=== PATIENT | male | born 1960 | race Caucasian/White ===

== ENCOUNTER 2021-04-10 10:44 | Emergency (ER) | payer BC ==
[~2021-04-10] VITALS: Ht 190.5 cm; Wt 83.9 kg
[2021-04-10] MEDS ORDERED: SODIUM CHLORIDE 0.9% 1000ML 1,000 ML IV STA (10:54)
[2021-04-10 11:28] LABS: BASOPHILS # (AUTO) 0.1 (0.0-0.1); BASOPHILS % 0.9 % (0.0-1.0); EOSINOPHILS # (AUTO) 1.5 (0.0-0.4); EOSINOPHILS % 10.7 % (0.0-6.0); HEMATOCRIT 39.8 % (38.2-49.6); HEMOGLOBIN 13.2 g/dL (14.0-18.0); LYMPHOCYTES # (AUTO) 1.3 (1.0-3.2); LYMPHOCYTES % 9.2 % (18.0-39.1); MEAN CORPUSCULAR HEMOGLOBIN 30.4 pg (28-32); MEAN CORPUSCULAR HGB CONC 33.2 g/dL (31-35); MEAN CORPUSCULAR VOLUME 91.7 fL (81-99); MONOCYTES # (AUTO) 0.8 (0.2-0.8); MONOCYTES % 5.8 % (4.4-11.3); NEUTROPHILS # (AUTO) 10.5 (2.1-6.9); NEUTROPHILS % 72.8 % (38.7-80.0); PLATELET COUNT 538 x10e3/uL (140-360); RED BLOOD COUNT 4.34 x10e6/uL (4.3-5.7); RED CELL DISTRIBUTION WIDTH 14.3 % (11.7-14.4)
[2021-04-10 11:53] LABS: ALBUMIN 2.8 g/dL (3.5-5.0); ALBUMIN/GLOBULIN RATIO 0.7 (0.8-2.0); ANION GAP 15.1 mmol/L (8-16); CALCIUM 8.5 mg/dL (8.4-10.2); CREATININE, SERUM 0.83 mg/dL (0.72-1.25); POTASSIUM 4.1 mmol/L (3.5-5.1)
[2021-04-10] MEDS ORDERED: VANCOCIN HCL125 MG PO (12:41)
[2021-04-10] MEDS ORDERED: DICYCLOMINE HCL10 MG PO (12:41)
[2021-04-10 12:50] VITALS: BP 117/71
== END 2021-04-10 12:58 | disposition home or self-care (01) ==
LOC: ER 11:08
DX: K52.89 Other specified noninfective gastroenteritis and colitis (principal); R00.2 Palpitations; J18.9 Pneumonia, unspecified organism; R53.1 Weakness
CPT/HCPCS: 36415; 71045; 80053; 83690; 84484; 85025; 99284; J7030

== ENCOUNTER 2021-04-22 09:48 | Inpatient (IN) | payer BC ==
[~2021-04-22] VITALS: Ht 190.5 cm; Wt 95.9 kg
[~2021-04-22 09:48] MED LIST: DICYCLOMINE HCL10 MG PO; VANCOCIN HCL125 MG PO
[2021-04-22 10:27] LABS: BASOPHILS # (AUTO) 0.1 (0.0-0.1); BASOPHILS % 0.4 % (0.0-1.0); EOSINOPHILS # (AUTO) 0.2 (0.0-0.4); EOSINOPHILS % 0.7 % (0.0-6.0); HEMATOCRIT 42.4 % (38.2-49.6); HEMOGLOBIN 14.6 g/dL (14.0-18.0); LYMPHOCYTES # (AUTO) 1.1 (1.0-3.2); LYMPHOCYTES % 3.9 % (18.0-39.1); MEAN CORPUSCULAR HEMOGLOBIN 30.2 pg (28-32); MEAN CORPUSCULAR HGB CONC 34.4 g/dL (31-35); MEAN CORPUSCULAR VOLUME 87.6 fL (81-99); MONOCYTES # (AUTO) 1.6 (0.2-0.8); MONOCYTES % 5.5 % (4.4-11.3); NEUTROPHILS # (AUTO) 24.4 (2.1-6.9); NEUTROPHILS % 86.6 % (38.7-80.0); PLATELET COUNT 420 x10e3/uL (140-360); RED BLOOD COUNT 4.84 x10e6/uL (4.3-5.7)
[2021-04-22 10:42] LABS: INR 0.94; PROTHROMBIN TIME 13.2 seconds (11.9-14.5)
[2021-04-22 10:43] LABS: PARTIAL THROMBOPLASTIN TIME 33.9 seconds (23.8-35.5)
[2021-04-22 10:52] LABS: ALBUMIN 3.1 g/dL (3.5-5.0); ALBUMIN/GLOBULIN RATIO 0.9 (0.8-2.0); CALCIUM 8.5 mg/dL (8.4-10.2); CREATININE, SERUM 0.69 mg/dL (0.72-1.25)
[2021-04-22 10:58] LABS: CREATINE KINASE MB 64.2 ng/mL (0-5.0)
[2021-04-22] MEDS ORDERED: SODIUM CHLORIDE 0.9% 1000ML 1,000 ML IV STA (11:08)
[2021-04-22] MEDS ORDERED: SODIUM CHLORIDE 0.9% 500ML 500 ML IV ONE (11:15)
[2021-04-22] MEDS: LEVOFLOXACIN 500MG/D5W 100ML 100 ML IV SCH (11:38)
[2021-04-22] MEDS ORDERED: ALBUTEROL/IPRATROPIUM 3 ML NEB NEB ONE (12:00)
[2021-04-22] MEDS ORDERED: SODIUM CHLORIDE 0.9% 1000ML 1,000 ML IV SCH (12:00)
[2021-04-22 12:16] LABS: CLARITY,URINE CLEAR (CLEAR); COLOR,URINE YELLOW (YELLOW); KETONES,URINE 2+ (NEGATIVE); LEUKOCYTE ESTERASE ,URINE NEGATIVE (NEGATIVE); NITRITE,URINE NEGATIVE (NEGATIVE); PROTEIN,URINE DIPSTICK TRACE (NEGATIVE); URINE UROBILINOGEN 0.2 mg/dL (0.2 - 1)
[2021-04-22 12:26] LABS: BACTERIA,URINE RARE /HPF; RBC,URINE 0-5 /HPF (0-5); WBC,URINE (MAN) 0-5 /HPF (0-5)
[2021-04-22 12:27] LABS: MUCUS,URINE FEW (RARE)
[2021-04-22] MEDS ORDERED: EPINEPHRINE HCL SYRINGE ONE (13:21)
[2021-04-22] MEDS ORDERED: ETOMIDATE 2 MG/ML 10 ML INJ IV ONE (13:21)
[2021-04-22] MEDS ORDERED: SODIUM BICARBONATE 8.4% INJ 50 ML SYR ONE (13:21)
[2021-04-22] MEDS ORDERED: ATROPINE SULFATE 0.1 MG/ML 10ML SYR ONE (13:21)
[2021-04-22] MEDS ORDERED: SUCCINYLCHOLINE CHLORIDE 20 MG/ML 10ML VIAL ONE (13:21)
[2021-04-22 14:17] LABS: BAND NEUTROPHILS % (MANUAL) 25 %; EOSINOPHILS % (MANUAL) 4 % (0-7); LYMPHOCYTES % (MANUAL) 4 % (19-48); METAMYELOCYTES % (MANUAL) 6 % (0-0); MONOCYTES % (MANUAL) 8 % (3.4-9.0); NEUTROPHILS % (MANUAL) 53 % (40-74)
[2021-04-22 14:18] LABS: SMUDGE CELLS FEW
[2021-04-22 14:19] LABS: PLATELET ESTIMATE SLIGHTLY INCREASED; PLATELET MORPHOLOGY COMMENT FEW GIANT
[2021-04-22 14:45] VITALS: BP 160/93
[2021-04-22 15:44] VITALS: BP 137/94
[2021-04-22] MEDS ORDERED: PRAVASTATIN SOD40 MG PO (17:10)
[2021-04-22] MEDS ORDERED: ULTRAM 50MG50 MG PO (17:10)
[2021-04-22] MEDS ORDERED: TRAMADOL HCL 50 MG TAB PO PRN (17:30)
[2021-04-22 18:41] LABS: CALCIUM 7.9 mg/dL (8.4-10.2); CREATININE, SERUM 0.62 mg/dL (0.72-1.25)
[2021-04-22 19:12] LABS: CREATINE KINASE MB 72.6 ng/mL (0-5.0)
[2021-04-22 20:00] VITALS: BP 145/93
[2021-04-22] MEDS ORDERED: MELATONIN3 MG PO (20:01)
[2021-04-22] MEDS ORDERED: ACETAMINOPHEN 325 MG TAB PO PRN (22:30)
[2021-04-22] MEDS ORDERED: DOCUSATE SODIUM 100 MG CAP PO PRN (22:30)
[2021-04-22] MEDS ORDERED: HYDRALAZINE HCL 20 MG/ML VIAL IV PRN (22:30)
[2021-04-22] MEDS ORDERED: ONDANSETRON HCL INJ 2MG/ML 2ML 2 MG/ML VIAL IV PRN (22:30)
[2021-04-22] MEDS ORDERED: ALBUTEROL SULF 0.083% NEB SOLN 3 ML NEB NEB PRN (22:30)
[2021-04-22] MEDS: MELATONIN 3 MG TAB PO PRN (23:10)
[2021-04-23] VITALS (8 sets, daily range): BP systolic 135–190; BP diastolic 81–96
[2021-04-23 03:52] LABS: CREATINE KINASE 1420 IU/L (30-200)
[2021-04-23 06:14] LABS: BASOPHILS # (AUTO) 0.1 (0.0-0.1); BASOPHILS % 0.4 % (0.0-1.0); EOSINOPHILS # (AUTO) 0.1 (0.0-0.4); EOSINOPHILS % 0.3 % (0.0-6.0); HEMATOCRIT 41.7 % (38.2-49.6); HEMOGLOBIN 14.5 g/dL (14.0-18.0); LYMPHOCYTES # (AUTO) 0.9 (1.0-3.2); LYMPHOCYTES % 3.3 % (18.0-39.1); MEAN CORPUSCULAR HEMOGLOBIN 30.3 pg (28-32); MEAN CORPUSCULAR HGB CONC 34.8 g/dL (31-35); MEAN CORPUSCULAR VOLUME 87.1 fL (81-99); MONOCYTES # (AUTO) 1.5 (0.2-0.8); MONOCYTES % 5.7 % (4.4-11.3); NEUTROPHILS # (AUTO) 23.3 (2.1-6.9); NEUTROPHILS % 86.8 % (38.7-80.0); PLATELET COUNT 399 x10e3/uL (140-360); RED BLOOD COUNT 4.79 x10e6/uL (4.3-5.7); RED CELL DISTRIBUTION WIDTH 14.4 % (11.7-14.4)
[2021-04-23 06:32] LABS: MAGNESIUM 1.8 MG/DL (1.3-2.1); PHOSPHORUS 2.1 MG/DL (2.3-4.7)
[2021-04-23 07:01] LABS: CALCIUM 8.2 mg/dL (8.4-10.2); CREATININE, SERUM 0.61 mg/dL (0.72-1.25)
[2021-04-23 07:02] LABS: FERRITIN 643.79 ng/mL (21.81-274.66); THYROID STIMULATING HORMONE 45.921 uIU/mL (0.350-4.940)
[2021-04-23] MEDS: ALBUTEROL/IPRATROPIUM 3 ML NEB NEB PRN ×2 (07:03→10:50)
[2021-04-23 07:56] LABS: FREE THYROXINE INDEX 0.3722 (1.4-3.8)
[2021-04-23] MEDS: DEXAMETHASONE SOD PHOS INJ 4 MG/ML SDV IV SCH (08:39)
[2021-04-23] MEDS: MULTIVITAMINS/MINERALS TAB PO SCH (08:39)
[2021-04-23] MEDS: LEVOFLOXACIN 500MG/D5W 100ML 100 ML IV SCH (08:39)
[2021-04-23] MEDS ORDERED: DEXAMETHASONE PHOS 4MG/ML 5ML MULTIDOSE VIAL IV SCH (09:00)
[2021-04-23] MEDS ORDERED: ONDANSETRON HCL 4 MG ORAL DISINTEGRATING TAB PO PRN (09:30)
[2021-04-23 11:54] LABS: BAND NEUTROPHILS % (MANUAL) 11 %; LYMPHOCYTES % (MANUAL) 1 % (19-48); METAMYELOCYTES % (MANUAL) 1 % (0-0); MONOCYTES % (MANUAL) 4 % (3.4-9.0); NEUTROPHILS % (MANUAL) 83 % (40-74); PLATELET ESTIMATE ADEQUATE; PLATELET MORPHOLOGY COMMENT NORMAL; RBC MORPHOLOGY COMMENT NORMAL
[2021-04-23 13:53] LABS: CREATINE KINASE MB 65.5 ng/mL (0-5.0)
[2021-04-23 15:46] LABS: BODY FLUID APPEARANCE CLOUDY; BODY FLUID COLOR RED; BODY FLUID TYPE PLEURAL
[2021-04-23 16:03] LABS: RBC,BODY FLUID 16000 cells/uL; WBC,BODY FLUID 1180 cells/uL
[2021-04-23] MEDS ORDERED: ENOXAPARIN SOD INJ 40 MG/0.4 ML SYR SC SCH (17:00)
[2021-04-23 17:02] LABS: LYMPHOCYTES,BODY FLUID 40 %; MONO/MACROPHG,BODY FLUID 45 %; NEUTROPHILS,BODY FLUID 12 %; OTHER CELLS,BODY FLUID 3 %
[2021-04-23] MEDS: SODIUM CHLORIDE 0.9% 1000ML 1,000 ML IV SCH (18:45)
[2021-04-23] MEDS: MIRTAZAPINE 15 MG TAB PO SCH (20:50)
[2021-04-23] MEDS: MELATONIN 3 MG TAB PO PRN (21:05)
[2021-04-24] VITALS (20 sets, daily range): BP systolic 117–189; BP diastolic 81–117
[2021-04-24] MEDS: SODIUM CHLORIDE 0.9% 1000ML 1,000 ML IV SCH ×2 (05:23→14:09)
[2021-04-24 06:29] LABS: ANION GAP 14.5 mmol/L (8-16); POTASSIUM 4.5 mmol/L (3.5-5.1)
[2021-04-24 06:52] LABS: CALCIUM 8.4 mg/dL (8.4-10.2); CREATININE, SERUM 0.6 mg/dL (0.72-1.25)
[2021-04-24] MEDS: ALBUTEROL/IPRATROPIUM 3 ML NEB NEB PRN (07:20)
[2021-04-24] MEDS: DEXAMETHASONE SOD PHOS INJ 4 MG/ML SDV IV SCH ×2 (08:49→09:00)
[2021-04-24] MEDS: MULTIVITAMINS/MINERALS TAB PO SCH (08:49)
[2021-04-24] MEDS: LEVOFLOXACIN 500MG/D5W 100ML 100 ML IV SCH (09:00)
[2021-04-24] MEDS ORDERED: LIDOCAINE HCL 2% LOCAL 20 ML VIAL ONE (09:39)
[2021-04-24] MEDS ORDERED: MIDAZOLAM HCL 2 MG/2 ML VIAL ONE (09:47)
[2021-04-24] MEDS ORDERED: FENTANYL CITRATE/PF 100MCG/2 ML INJ ONE (09:48)
[2021-04-24] MEDS ORDERED: SODIUM CHLORIDE 0.9% 500ML 500 ML ONE (09:48)
[2021-04-24] MEDS ORDERED: SODIUM CHLORIDE 0.9% 50ML 50 ML ONE ×2 (09:55→16:11)
[2021-04-24] MEDS ORDERED: SODIUM CHLORIDE 0.9% 250ML 250 ML ONE (10:20)
[2021-04-24] MEDS ORDERED: Vancomycin IV 1 GM VIAL ONE (10:20)
[2021-04-24 13:26] LABS: BODY FLUID APPEARANCE CLOUDY; BODY FLUID COLOR RED
[2021-04-24 13:28] LABS: GLUCOSE,BODY FLUID 88 mg/dL; RBC,BODY FLUID 122265 cells/uL; WBC,BODY FLUID 9702 cells/uL
[2021-04-24 14:13] LABS: BODY FLUID TYPE PERICARDIAL
[2021-04-24] MEDS ORDERED: SODIUM CHLORIDE 3% 200 ML IV ONE (15:00)
[2021-04-24 15:27] LABS: EOSINOPHILS,BODY FLUID 1 %; LYMPHOCYTES,BODY FLUID 48 %; MONO/MACROPHG,BODY FLUID 35 %; NEUTROPHILS,BODY FLUID 16 %
[2021-04-24] MEDS ORDERED: IOPAMIDOL 370 MG/ML 200 ML INFUS..BTL INJ ONE (16:11)
[2021-04-24] MEDS: MIRTAZAPINE 15 MG TAB PO SCH (21:30)
[2021-04-24] MEDS: MELATONIN 3 MG TAB PO PRN (21:30)
[2021-04-25] VITALS (55 sets, daily range): BP systolic 89–167; BP diastolic 23–112
[2021-04-25] MEDS: Vancomycin IV 1 GM in SODIUM CHLORIDE 0.9% 250ML 250 ML IV SCH ×3 (00:35→23:47)
[2021-04-25] MEDS: SODIUM CHLORIDE 0.9% 1000ML 1,000 ML IV SCH ×3 (02:11→22:09)
[2021-04-25 05:01] LABS: BASOPHILS # (AUTO) 0.1 (0.0-0.1); BASOPHILS % 0.3 % (0.0-1.0); EOSINOPHILS # (AUTO) 0.1 (0.0-0.4); EOSINOPHILS % 0.3 % (0.0-6.0); HEMATOCRIT 33.2 % (38.2-49.6); HEMOGLOBIN 11.3 g/dL (14.0-18.0); LYMPHOCYTES # (AUTO) 0.5 (1.0-3.2); LYMPHOCYTES % 2.1 % (18.0-39.1); MEAN CORPUSCULAR HEMOGLOBIN 30.3 pg (28-32); MONOCYTES # (AUTO) 0.9 (0.2-0.8); MONOCYTES % 4.1 % (4.4-11.3); NEUTROPHILS # (AUTO) 20.1 (2.1-6.9); NEUTROPHILS % 90.5 % (38.7-80.0); PLATELET COUNT 294 x10e3/uL (140-360); RED BLOOD COUNT 3.73 x10e6/uL (4.3-5.7); RED CELL DISTRIBUTION WIDTH 14.7 % (11.7-14.4)
[2021-04-25 06:29] LABS: ALBUMIN 2.5 g/dL (3.5-5.0); ALBUMIN/GLOBULIN RATIO 0.8 (0.8-2.0); ANION GAP 10.3 mmol/L (8-16); CALCIUM 8.2 mg/dL (8.4-10.2); CREATININE, SERUM 0.57 mg/dL (0.72-1.25); POTASSIUM 4.3 mmol/L (3.5-5.1)
[2021-04-25] MEDS ORDERED: LORAZEPAM INJ 2 MG/ML VIAL IV PRN (07:00)
[2021-04-25] MEDS: PROPOFOL IV EMULSION 10MG/ML 100 ML IV SCH ×3 (07:10→18:25)
[2021-04-25] MEDS: LORAZEPAM INJ 2 MG/ML VIAL IV PRN ×2 (07:39→17:56)
[2021-04-25] MEDS ORDERED: SODIUM CHLORIDE 0.9% 1000ML 1,000 ML ONE (07:44)
[2021-04-25] MEDS: NOREPINEPHRINE 8 MG/D5W 250 ML 250 ML IV SCH (07:57)
[2021-04-25 08:10] LABS: BAND NEUTROPHILS % (MANUAL) 3 %; EOSINOPHILS % (MANUAL) 1 % (0-7); LYMPHOCYTES % (MANUAL) 4 % (19-48); MONOCYTES % (MANUAL) 3 % (3.4-9.0); NEUTROPHILS % (MANUAL) 89 % (40-74); PLATELET ESTIMATE ADEQUATE; PLATELET MORPHOLOGY COMMENT NORMAL; RBC MORPHOLOGY COMMENT NORMAL
[2021-04-25] MEDS ORDERED: SODIUM CHLORIDE 0.9% 1000ML 1,000 ML IV SCH (08:30)
[2021-04-25] MEDS: MULTIVITAMINS/MINERALS TAB PO SCH (09:13)
[2021-04-25 09:34] LABS: ABG PCO2 64 mmHg (35-45); ABG PH 7.23 (7.35-7.45)
[2021-04-25 09:35] LABS: ABG PO2 62 mmHg (80-105)
[2021-04-25 09:36] LABS: ABG HCO3 27 mmol/L (22-26); ABG TCO2 29
[2021-04-25] MEDS: LEVOFLOXACIN 500MG/D5W 100ML 100 ML IV SCH (10:09)
[2021-04-25] MEDS: MIRTAZAPINE 15 MG TAB PO SCH (20:05)
[2021-04-26] VITALS (61 sets, daily range): BP systolic 97–159; BP diastolic 74–104
[2021-04-26] MEDS: PROPOFOL IV EMULSION 10MG/ML 100 ML IV SCH ×4 (01:19→22:42)
[2021-04-26 05:08] LABS: BASOPHILS # (AUTO) 0.1 (0.0-0.1); BASOPHILS % 0.4 % (0.0-1.0); EOSINOPHILS # (AUTO) 1.9 (0.0-0.4); EOSINOPHILS % 10.6 % (0.0-6.0); HEMATOCRIT 38.2 % (38.2-49.6); HEMOGLOBIN 12.7 g/dL (14.0-18.0); LYMPHOCYTES # (AUTO) 1.1 (1.0-3.2); LYMPHOCYTES % 5.8 % (18.0-39.1); MEAN CORPUSCULAR HEMOGLOBIN 29.8 pg (28-32); MEAN CORPUSCULAR HGB CONC 33.2 g/dL (31-35); MEAN CORPUSCULAR VOLUME 89.7 fL (81-99); MONOCYTES # (AUTO) 0.5 (0.2-0.8); MONOCYTES % 2.9 % (4.4-11.3); NEUTROPHILS # (AUTO) 14.1 (2.1-6.9); NEUTROPHILS % 78.3 % (38.7-80.0); PLATELET COUNT 321 x10e3/uL (140-360); RED BLOOD COUNT 4.26 x10e6/uL (4.3-5.7); RED CELL DISTRIBUTION WIDTH 15.2 % (11.7-14.4)
[2021-04-26] MEDS: NOREPINEPHRINE 8 MG/D5W 250 ML 250 ML IV SCH (05:20)
[2021-04-26 05:33] LABS: ALBUMIN 1.9 g/dL (3.5-5.0); ALBUMIN/GLOBULIN RATIO 0.7 (0.8-2.0); CALCIUM 7.9 mg/dL (8.4-10.2); CREATININE, SERUM 0.59 mg/dL (0.72-1.25)
[2021-04-26] MEDS: SODIUM CHLORIDE 1 GM TAB PO SCH (08:02)
[2021-04-26] MEDS: MULTIVITAMINS/MINERALS TAB PO SCH (08:02)
[2021-04-26] MEDS: LEVOFLOXACIN 500MG/D5W 100ML 100 ML IV SCH (09:06)
[2021-04-26] MEDS: SODIUM CHLORIDE 0.9% 1000ML 1,000 ML IV SCH (09:06)
[2021-04-26 10:40] LABS: ABG PCO2 47 mmHg (35-45); ABG PO2 67 mmHg (80-105)
[2021-04-26 10:41] LABS: ABG HCO3 29 mmol/L (22-26); ABG TCO2 31
[2021-04-26] MEDS: Vancomycin IV 1 GM in SODIUM CHLORIDE 0.9% 250ML 250 ML IV SCH ×2 (13:14→23:59)
[2021-04-26] MEDS: LORAZEPAM INJ 2 MG/ML VIAL IV PRN (15:45)
[2021-04-26] MEDS: MIRTAZAPINE 15 MG TAB PO SCH (20:11)
[2021-04-27] VITALS (26 sets, daily range): BP systolic 91–125; BP diastolic 63–98
[2021-04-27] MEDS: PROPOFOL IV EMULSION 10MG/ML 100 ML IV SCH ×5 (04:20→23:18)
[2021-04-27 05:02] LABS: BASOPHILS # (AUTO) 0.1 (0.0-0.1); BASOPHILS % 0.5 % (0.0-1.0); EOSINOPHILS # (AUTO) 1.8 (0.0-0.4); EOSINOPHILS % 12.2 % (0.0-6.0); HEMATOCRIT 35.6 % (38.2-49.6); HEMOGLOBIN 11.7 g/dL (14.0-18.0); LYMPHOCYTES # (AUTO) 1.1 (1.0-3.2); LYMPHOCYTES % 7.5 % (18.0-39.1); MEAN CORPUSCULAR HEMOGLOBIN 30.3 pg (28-32); MEAN CORPUSCULAR HGB CONC 32.9 g/dL (31-35); MEAN CORPUSCULAR VOLUME 92.2 fL (81-99); MONOCYTES # (AUTO) 0.4 (0.2-0.8); MONOCYTES % 2.6 % (4.4-11.3); NEUTROPHILS # (AUTO) 11.4 (2.1-6.9); NEUTROPHILS % 75.9 % (38.7-80.0); PLATELET COUNT 296 x10e3/uL (140-360); RED BLOOD COUNT 3.86 x10e6/uL (4.3-5.7); RED CELL DISTRIBUTION WIDTH 15.7 % (11.7-14.4)
[2021-04-27 05:39] LABS: ALANINE AMINOTRANSFERASE 27 IU/L (0-55); ALBUMIN 1.7 g/dL (3.5-5.0); ALBUMIN/GLOBULIN RATIO 0.6 (0.8-2.0); ALKALINE PHOSPHATASE 60 IU/L (40-150); ANION GAP 8.7 mmol/L (8-16); BUN/CREATININE RATIO 9 (6-25); CALCIUM 8.2 mg/dL (8.4-10.2); CARBON DIOXIDE 31 mmol/L (22-29); CHLORIDE 99 mmol/L (98-107); CREATININE, SERUM 0.56 mg/dL (0.72-1.25); EST GLOMERULAR FILTRATION RATE 148 ML/MIN (60-); GLUCOSE 120 mg/dL (74-118); POTASSIUM 3.7 mmol/L (3.5-5.1); SODIUM 135 mmol/L (136-145)
[2021-04-27 06:28] LABS: BLOOD UREA NITROGEN < 5 mg/dL (7-26)
[2021-04-27] MEDS: LEVOFLOXACIN 500MG/D5W 100ML 100 ML IV SCH (09:43)
[2021-04-27] MEDS: MULTIVITAMINS/MINERALS TAB PO SCH (09:43)
[2021-04-27] MEDS: SODIUM CHLORIDE 1 GM TAB PO SCH (09:43)
[2021-04-27] MEDS: Vancomycin IV 1 GM in SODIUM CHLORIDE 0.9% 250ML 250 ML IV SCH (12:05)
[2021-04-27] MEDS: NOREPINEPHRINE 8 MG/D5W 250 ML 250 ML IV SCH ×2 (12:58→20:00)
[2021-04-27 15:41] LABS: ABG HCO3 33 mmol/L (22-26); ABG PCO2 45 mmHg (35-45); ABG PH 7.48 (7.35-7.45); ABG PO2 86 mmHg (80-105); ABG TCO2 34
[2021-04-27] MEDS: MIRTAZAPINE 15 MG TAB PO SCH (21:07)
[2021-04-28] VITALS (40 sets, daily range): BP systolic 101–140; BP diastolic 75–98
[2021-04-28] MEDS: Vancomycin IV 1 GM in SODIUM CHLORIDE 0.9% 250ML 250 ML IV SCH ×2 (00:29→11:27)
[2021-04-28 04:27] LABS: BASOPHILS # (AUTO) 0.1 (0.0-0.1); BASOPHILS % 0.7 % (0.0-1.0); EOSINOPHILS # (AUTO) 1.4 (0.0-0.4); EOSINOPHILS % 11.9 % (0.0-6.0); HEMATOCRIT 34.6 % (38.2-49.6); HEMOGLOBIN 11.2 g/dL (14.0-18.0); LYMPHOCYTES % 8.3 % (18.0-39.1); MEAN CORPUSCULAR HEMOGLOBIN 29.9 pg (28-32); MEAN CORPUSCULAR HGB CONC 32.4 g/dL (31-35); MEAN CORPUSCULAR VOLUME 92.5 fL (81-99); MONOCYTES # (AUTO) 0.4 (0.2-0.8); MONOCYTES % 3.2 % (4.4-11.3); NEUTROPHILS # (AUTO) 8.9 (2.1-6.9); NEUTROPHILS % 74.6 % (38.7-80.0); PLATELET COUNT 281 x10e3/uL (140-360); RED BLOOD COUNT 3.74 x10e6/uL (4.3-5.7); RED CELL DISTRIBUTION WIDTH 15.9 % (11.7-14.4)
[2021-04-28 04:54] LABS: ALBUMIN 1.5 g/dL (3.5-5.0); ALBUMIN/GLOBULIN RATIO 0.5 (0.8-2.0); ANION GAP 10.4 mmol/L (8-16); CREATININE, SERUM 0.57 mg/dL (0.72-1.25); POTASSIUM 3.4 mmol/L (3.5-5.1)
[2021-04-28 07:22] LABS: ABG HCO3 35 mmol/L (22-26); ABG PCO2 50 mmHg (35-45); ABG PH 7.45 (7.35-7.45); ABG PO2 97 mmHg (80-105); ABG TCO2 37
[2021-04-28] MEDS: MULTIVITAMINS/MINERALS TAB PO SCH (08:06)
[2021-04-28] MEDS: SODIUM CHLORIDE 1 GM TAB PO SCH (08:06)
[2021-04-28] MEDS: LEVOFLOXACIN 500MG/D5W 100ML 100 ML IV SCH (08:22)
[2021-04-28] MEDS: PROPOFOL IV EMULSION 10MG/ML 100 ML IV SCH ×4 (08:43→22:00)
[2021-04-28] MEDS: SENNA-S TABLET PO SCH (09:47)
[2021-04-28] MEDS: MIRTAZAPINE 15 MG TAB PO SCH (21:55)
[2021-04-29] VITALS (46 sets, daily range): BP systolic 89–128; BP diastolic 70–89
[2021-04-29] MEDS: Vancomycin IV 1 GM in SODIUM CHLORIDE 0.9% 250ML 250 ML IV SCH ×2 (00:30→11:08)
[2021-04-29] MEDS: PROPOFOL IV EMULSION 10MG/ML 100 ML IV SCH ×3 (03:00→20:33)
[2021-04-29 06:43] LABS: BASOPHILS # (AUTO) 0.1 (0.0-0.1); BASOPHILS % 1.1 % (0.0-1.0); EOSINOPHILS # (AUTO) 1.1 (0.0-0.4); EOSINOPHILS % 10.9 % (0.0-6.0); HEMATOCRIT 35.5 % (38.2-49.6); HEMOGLOBIN 11.8 g/dL (14.0-18.0); LYMPHOCYTES # (AUTO) 0.6 (1.0-3.2); LYMPHOCYTES % 6.1 % (18.0-39.1); MEAN CORPUSCULAR HEMOGLOBIN 30.3 pg (28-32); MEAN CORPUSCULAR HGB CONC 33.2 g/dL (31-35); MEAN CORPUSCULAR VOLUME 91.3 fL (81-99); MONOCYTES # (AUTO) 0.5 (0.2-0.8); MONOCYTES % 4.6 % (4.4-11.3); NEUTROPHILS # (AUTO) 7.5 (2.1-6.9); PLATELET COUNT 264 x10e3/uL (140-360); RED BLOOD COUNT 3.89 x10e6/uL (4.3-5.7); RED CELL DISTRIBUTION WIDTH 16.3 % (11.7-14.4)
[2021-04-29] MEDS: NOREPINEPHRINE 8 MG/D5W 250 ML 250 ML IV SCH (07:00)
[2021-04-29 07:15] LABS: ALBUMIN 1.5 g/dL (3.5-5.0); ALBUMIN/GLOBULIN RATIO 0.4 (0.8-2.0); ANION GAP 10.6 mmol/L (8-16); CALCIUM 8.2 mg/dL (8.4-10.2); CREATININE, SERUM 0.5 mg/dL (0.72-1.25); POTASSIUM 3.6 mmol/L (3.5-5.1)
[2021-04-29] MEDS: SENNA-S TABLET PO SCH (08:09)
[2021-04-29] MEDS: MULTIVITAMINS/MINERALS TAB PO SCH (08:09)
[2021-04-29] MEDS: SODIUM CHLORIDE 1 GM TAB PO SCH (08:09)
[2021-04-29 08:19] LABS: ABG HCO3 35 mmol/L (22-26); ABG PCO2 42 mmHg (35-45); ABG PH 7.53 (7.35-7.45); ABG PO2 51 mmHg (80-105); ABG TCO2 37
[2021-04-29] MEDS: LEVOFLOXACIN 500MG/D5W 100ML 100 ML IV SCH (09:28)
[2021-04-29] MEDS: LORAZEPAM INJ 2 MG/ML VIAL IV PRN (11:15)
[2021-04-29] MEDS: MIRTAZAPINE 15 MG TAB PO SCH (20:33)
[2021-04-30] VITALS (26 sets, daily range): BP systolic 95–120; BP diastolic 66–88
[2021-04-30] MEDS: Vancomycin IV 1 GM in SODIUM CHLORIDE 0.9% 250ML 250 ML IV SCH ×3 (00:30→23:54)
[2021-04-30] MEDS: PROPOFOL IV EMULSION 10MG/ML 100 ML IV SCH ×6 (04:59→22:49)
[2021-04-30 05:42] LABS: BASOPHILS # (AUTO) 0.1 (0.0-0.1); BASOPHILS % 1.1 % (0.0-1.0); EOSINOPHILS # (AUTO) 1.2 (0.0-0.4); EOSINOPHILS % 12.3 % (0.0-6.0); HEMATOCRIT 34.4 % (38.2-49.6); HEMOGLOBIN 11.3 g/dL (14.0-18.0); LYMPHOCYTES # (AUTO) 0.9 (1.0-3.2); LYMPHOCYTES % 8.9 % (18.0-39.1); MEAN CORPUSCULAR HEMOGLOBIN 30.2 pg (28-32); MEAN CORPUSCULAR HGB CONC 32.8 g/dL (31-35); MONOCYTES # (AUTO) 0.5 (0.2-0.8); NEUTROPHILS % 71.8 % (38.7-80.0); PLATELET COUNT 278 x10e3/uL (140-360); RED BLOOD COUNT 3.74 x10e6/uL (4.3-5.7); RED CELL DISTRIBUTION WIDTH 16.3 % (11.7-14.4)
[2021-04-30 06:06] LABS: ALBUMIN 1.4 g/dL (3.5-5.0); ALBUMIN/GLOBULIN RATIO 0.4 (0.8-2.0); ANION GAP 11.6 mmol/L (8-16); CREATININE, SERUM 0.52 mg/dL (0.72-1.25); POTASSIUM 3.6 mmol/L (3.5-5.1)
[2021-04-30 08:21] LABS: ABG HCO3 37 mmol/L (22-26); ABG PCO2 52 mmHg (35-45); ABG PH 7.46 (7.35-7.45); ABG PO2 58 mmHg (80-105); ABG TCO2 38
[2021-04-30] MEDS: SENNA-S TABLET PO SCH (09:00)
[2021-04-30] MEDS: LEVOFLOXACIN 500MG/D5W 100ML 100 ML IV SCH (09:11)
[2021-04-30] MEDS: MULTIVITAMINS/MINERALS TAB PO SCH (09:11)
[2021-04-30] MEDS: SODIUM CHLORIDE 1 GM TAB PO SCH (09:11)
[2021-04-30] MEDS: MIRTAZAPINE 15 MG TAB PO SCH (20:59)
[2021-05-01] VITALS (25 sets, daily range): BP systolic 91–120; BP diastolic 69–90
[2021-05-01] MEDS: PROPOFOL IV EMULSION 10MG/ML 100 ML IV SCH ×4 (03:15→19:50)
[2021-05-01 04:59] LABS: BASOPHILS # (AUTO) 0.1 (0.0-0.1); EOSINOPHILS # (AUTO) 1.2 (0.0-0.4); EOSINOPHILS % 12.6 % (0.0-6.0); HEMATOCRIT 33.8 % (38.2-49.6); HEMOGLOBIN 10.9 g/dL (14.0-18.0); LYMPHOCYTES # (AUTO) 0.8 (1.0-3.2); LYMPHOCYTES % 8.3 % (18.0-39.1); MEAN CORPUSCULAR HGB CONC 32.2 g/dL (31-35); MEAN CORPUSCULAR VOLUME 93.1 fL (81-99); MONOCYTES # (AUTO) 0.5 (0.2-0.8); MONOCYTES % 5.5 % (4.4-11.3); NEUTROPHILS # (AUTO) 6.6 (2.1-6.9); NEUTROPHILS % 71.5 % (38.7-80.0); PLATELET COUNT 270 x10e3/uL (140-360); RED BLOOD COUNT 3.63 x10e6/uL (4.3-5.7); RED CELL DISTRIBUTION WIDTH 16.2 % (11.7-14.4)
[2021-05-01 05:27] LABS: ALBUMIN 1.4 g/dL (3.5-5.0); ALBUMIN/GLOBULIN RATIO 0.4 (0.8-2.0); ANION GAP 11.7 mmol/L (8-16); CREATININE, SERUM 0.52 mg/dL (0.72-1.25); POTASSIUM 3.7 mmol/L (3.5-5.1)
[2021-05-01] MEDS: SENNA-S TABLET PO SCH ×2 (09:00→14:27)
[2021-05-01] MEDS: MULTIVITAMINS/MINERALS TAB PO SCH (09:47)
[2021-05-01] MEDS: LEVOFLOXACIN 500MG/D5W 100ML 100 ML IV SCH (09:47)
[2021-05-01] MEDS: Vancomycin IV 1 GM in SODIUM CHLORIDE 0.9% 250ML 250 ML IV SCH (11:52)
[2021-05-01] MEDS: MIRTAZAPINE 15 MG TAB PO SCH (21:45)
[2021-05-02] VITALS (23 sets, daily range): BP systolic 90–129; BP diastolic 66–89
[2021-05-02] MEDS: Vancomycin IV 1 GM in SODIUM CHLORIDE 0.9% 250ML 250 ML IV SCH ×2 (00:12→12:20)
[2021-05-02] MEDS: PROPOFOL IV EMULSION 10MG/ML 100 ML IV SCH ×4 (00:15→20:15)
[2021-05-02 05:05] LABS: BASOPHILS # (AUTO) 0.1 (0.0-0.1); BASOPHILS % 1.4 % (0.0-1.0); EOSINOPHILS # (AUTO) 1.2 (0.0-0.4); EOSINOPHILS % 13.1 % (0.0-6.0); HEMATOCRIT 33.9 % (38.2-49.6); LYMPHOCYTES # (AUTO) 0.8 (1.0-3.2); LYMPHOCYTES % 8.6 % (18.0-39.1); MEAN CORPUSCULAR HGB CONC 32.4 g/dL (31-35); MEAN CORPUSCULAR VOLUME 92.4 fL (81-99); MONOCYTES # (AUTO) 0.7 (0.2-0.8); MONOCYTES % 7.3 % (4.4-11.3); NEUTROPHILS # (AUTO) 6.3 (2.1-6.9); NEUTROPHILS % 68.6 % (38.7-80.0); PLATELET COUNT 282 x10e3/uL (140-360); RED BLOOD COUNT 3.67 x10e6/uL (4.3-5.7); RED CELL DISTRIBUTION WIDTH 16.3 % (11.7-14.4)
[2021-05-02 05:36] LABS: ALBUMIN 1.5 g/dL (3.5-5.0); ALBUMIN/GLOBULIN RATIO 0.4 (0.8-2.0); ANION GAP 11.9 mmol/L (8-16); CALCIUM 8.4 mg/dL (8.4-10.2); CREATININE, SERUM 0.55 mg/dL (0.72-1.25); POTASSIUM 3.9 mmol/L (3.5-5.1)
[2021-05-02 07:55] LABS: ABG PCO2 60 mmHg (35-45); ABG PH 7.44 (7.35-7.45)
[2021-05-02 07:56] LABS: ABG HCO3 40 mmol/L (22-26); ABG PO2 73 mmHg (80-105); ABG TCO2 42
[2021-05-02] MEDS ORDERED: SODIUM CHLORIDE 0.9% 0 ML ONE (08:07)
[2021-05-02] MEDS: LEVOFLOXACIN 500MG/D5W 100ML 100 ML IV SCH (08:11)
[2021-05-02] MEDS: MULTIVITAMINS/MINERALS TAB PO SCH (08:11)
[2021-05-02] MEDS ORDERED: PROPOFOL IV EMULSION 10MG/ML 100 ML ONE ×2 (08:25→12:37)
[2021-05-02] MEDS: ENOXAPARIN SOD INJ 40 MG/0.4 ML SYR SC SCH (12:20)
[2021-05-02] MEDS: MIRTAZAPINE 15 MG TAB PO SCH (20:57)
[2021-05-03] VITALS (24 sets, daily range): BP systolic 88–123; BP diastolic 63–87
[2021-05-03] MEDS: Vancomycin IV 1 GM in SODIUM CHLORIDE 0.9% 250ML 250 ML IV SCH ×3 (00:45→23:42)
[2021-05-03] MEDS: PROPOFOL IV EMULSION 10MG/ML 100 ML IV SCH ×6 (05:00→20:03)
[2021-05-03 06:34] LABS: BASOPHILS # (AUTO) 0.2 (0.0-0.1); BASOPHILS % 2.1 % (0.0-1.0); EOSINOPHILS # (AUTO) 1.3 (0.0-0.4); EOSINOPHILS % 16.5 % (0.0-6.0); HEMATOCRIT 34.6 % (38.2-49.6); HEMOGLOBIN 10.8 g/dL (14.0-18.0); LYMPHOCYTES # (AUTO) 0.7 (1.0-3.2); LYMPHOCYTES % 8.3 % (18.0-39.1); MEAN CORPUSCULAR HEMOGLOBIN 29.8 pg (28-32); MEAN CORPUSCULAR HGB CONC 31.2 g/dL (31-35); MEAN CORPUSCULAR VOLUME 95.6 fL (81-99); MONOCYTES # (AUTO) 0.6 (0.2-0.8); MONOCYTES % 7.1 % (4.4-11.3); NEUTROPHILS # (AUTO) 5.2 (2.1-6.9); NEUTROPHILS % 64.3 % (38.7-80.0); PLATELET COUNT 299 x10e3/uL (140-360); RED BLOOD COUNT 3.62 x10e6/uL (4.3-5.7); RED CELL DISTRIBUTION WIDTH 16.3 % (11.7-14.4)
[2021-05-03 06:59] LABS: ALBUMIN 1.5 g/dL (3.5-5.0); ALBUMIN/GLOBULIN RATIO 0.4 (0.8-2.0); ANION GAP 12.1 mmol/L (8-16); CALCIUM 8.3 mg/dL (8.4-10.2); CREATININE, SERUM 0.53 mg/dL (0.72-1.25); POTASSIUM 4.1 mmol/L (3.5-5.1)
[2021-05-03 07:56] LABS: ABG HCO3 39 mmol/L (22-26); ABG PCO2 54 mmHg (35-45); ABG PH 7.46 (7.35-7.45); ABG PO2 75 mmHg (80-105); ABG TCO2 40
[2021-05-03] MEDS: SENNA-S TABLET PO SCH (08:05)
[2021-05-03] MEDS: ENOXAPARIN SOD INJ 40 MG/0.4 ML SYR SC SCH (08:05)
[2021-05-03] MEDS: MULTIVITAMINS/MINERALS TAB PO SCH (08:05)
[2021-05-03] MEDS: MIRTAZAPINE 15 MG TAB PO SCH (21:00)
[2021-05-04] VITALS (24 sets, daily range): BP systolic 87–131; BP diastolic 70–102
[2021-05-04] MEDS: PROPOFOL IV EMULSION 10MG/ML 100 ML IV SCH ×6 (00:11→20:43)
[2021-05-04 05:11] LABS: BASOPHILS # (AUTO) 0.2 (0.0-0.1); BASOPHILS % 1.6 % (0.0-1.0); EOSINOPHILS # (AUTO) 1.4 (0.0-0.4); EOSINOPHILS % 14.9 % (0.0-6.0); HEMATOCRIT 37.4 % (38.2-49.6); HEMOGLOBIN 11.6 g/dL (14.0-18.0); LYMPHOCYTES # (AUTO) 0.9 (1.0-3.2); LYMPHOCYTES % 9.6 % (18.0-39.1); MEAN CORPUSCULAR HEMOGLOBIN 29.4 pg (28-32); MEAN CORPUSCULAR VOLUME 94.7 fL (81-99); MONOCYTES # (AUTO) 0.7 (0.2-0.8); MONOCYTES % 7.7 % (4.4-11.3); NEUTROPHILS % 65.1 % (38.7-80.0); PLATELET COUNT 340 x10e3/uL (140-360); RED BLOOD COUNT 3.95 x10e6/uL (4.3-5.7); RED CELL DISTRIBUTION WIDTH 16.4 % (11.7-14.4)
[2021-05-04 05:30] LABS: ALBUMIN 1.6 g/dL (3.5-5.0); ALBUMIN/GLOBULIN RATIO 0.4 (0.8-2.0); ANION GAP 12.1 mmol/L (8-16); CALCIUM 8.3 mg/dL (8.4-10.2); CREATININE, SERUM 0.54 mg/dL (0.72-1.25); POTASSIUM 4.1 mmol/L (3.5-5.1)
[2021-05-04 08:09] LABS: ABG HCO3 40 mmol/L (22-26); ABG PCO2 62 mmHg (35-45); ABG PH 7.42 (7.35-7.45); ABG PO2 62 mmHg (80-105); ABG TCO2 42
[2021-05-04] MEDS ORDERED: MAGNESIUM HYDROXIDE 30 ML UDC PO ONE (08:30)
[2021-05-04] MEDS: SENNA-S TABLET PO SCH (08:58)
[2021-05-04] MEDS: ENOXAPARIN SOD INJ 40 MG/0.4 ML SYR SC SCH (08:58)
[2021-05-04] MEDS: MULTIVITAMINS/MINERALS TAB PO SCH (08:58)
[2021-05-04] MEDS ORDERED: SODIUM CHLORIDE 0.9% 250ML 250 ML IV ONE (11:00)
[2021-05-04] MEDS: Vancomycin IV 1 GM in SODIUM CHLORIDE 0.9% 250ML 250 ML IV SCH ×2 (11:22→23:55)
[2021-05-04] MEDS: MIRTAZAPINE 15 MG TAB PO SCH (20:16)
[2021-05-05] VITALS (26 sets, daily range): BP systolic 80–136; BP diastolic 59–90
[2021-05-05] MEDS: PROPOFOL IV EMULSION 10MG/ML 100 ML IV SCH ×4 (01:34→21:30)
[2021-05-05 04:44] LABS: BASOPHILS # (AUTO) 0.2 (0.0-0.1); BASOPHILS % 1.6 % (0.0-1.0); EOSINOPHILS # (AUTO) 1.1 (0.0-0.4); EOSINOPHILS % 12.4 % (0.0-6.0); HEMATOCRIT 36.7 % (38.2-49.6); HEMOGLOBIN 11.3 g/dL (14.0-18.0); LYMPHOCYTES # (AUTO) 0.8 (1.0-3.2); LYMPHOCYTES % 8.5 % (18.0-39.1); MEAN CORPUSCULAR HEMOGLOBIN 29.6 pg (28-32); MEAN CORPUSCULAR HGB CONC 30.8 g/dL (31-35); MEAN CORPUSCULAR VOLUME 96.1 fL (81-99); MONOCYTES # (AUTO) 0.8 (0.2-0.8); MONOCYTES % 8.6 % (4.4-11.3); NEUTROPHILS # (AUTO) 6.2 (2.1-6.9); NEUTROPHILS % 67.8 % (38.7-80.0); PLATELET COUNT 350 x10e3/uL (140-360); RED BLOOD COUNT 3.82 x10e6/uL (4.3-5.7); RED CELL DISTRIBUTION WIDTH 16.4 % (11.7-14.4)
[2021-05-05 05:00] LABS: ALBUMIN 1.6 g/dL (3.5-5.0); ALBUMIN/GLOBULIN RATIO 0.4 (0.8-2.0); ANION GAP 11.8 mmol/L (8-16); CREATININE, SERUM 0.5 mg/dL (0.72-1.25); POTASSIUM 3.8 mmol/L (3.5-5.1)
[2021-05-05 08:02] LABS: ABG PH 7.38 (7.35-7.45)
[2021-05-05 08:03] LABS: ABG HCO3 39 mmol/L (22-26); ABG PCO2 66 mmHg (35-45); ABG PO2 61 mmHg (80-105); ABG TCO2 41
[2021-05-05] MEDS: SENNA-S TABLET PO SCH (08:32)
[2021-05-05] MEDS: MULTIVITAMINS/MINERALS TAB PO SCH (08:32)
[2021-05-05] MEDS ORDERED: ENOXAPARIN SOD INJ 40 MG/0.4 ML SYR SC SCH (09:00)
[2021-05-05] MEDS: MIRTAZAPINE 15 MG TAB PO SCH (21:42)
[2021-05-06] VITALS (22 sets, daily range): BP systolic 96–128; BP diastolic 72–87
[2021-05-06] MEDS: PROPOFOL IV EMULSION 10MG/ML 100 ML IV SCH ×2 (05:41→09:40)
[2021-05-06 06:26] LABS: BASOPHILS # (AUTO) 0.2 (0.0-0.1); BASOPHILS % 1.8 % (0.0-1.0); EOSINOPHILS % 10.2 % (0.0-6.0); HEMATOCRIT 36.3 % (38.2-49.6); HEMOGLOBIN 11.4 g/dL (14.0-18.0); LYMPHOCYTES # (AUTO) 0.8 (1.0-3.2); LYMPHOCYTES % 7.8 % (18.0-39.1); MEAN CORPUSCULAR HEMOGLOBIN 29.8 pg (28-32); MEAN CORPUSCULAR HGB CONC 31.4 g/dL (31-35); MONOCYTES # (AUTO) 0.8 (0.2-0.8); MONOCYTES % 7.8 % (4.4-11.3); NEUTROPHILS # (AUTO) 7.2 (2.1-6.9); NEUTROPHILS % 70.3 % (38.7-80.0); PLATELET COUNT 407 x10e3/uL (140-360); RED BLOOD COUNT 3.82 x10e6/uL (4.3-5.7); RED CELL DISTRIBUTION WIDTH 16.5 % (11.7-14.4)
[2021-05-06 06:48] LABS: ALBUMIN 1.7 g/dL (3.5-5.0); ALBUMIN/GLOBULIN RATIO 0.4 (0.8-2.0); CALCIUM 8.5 mg/dL (8.4-10.2); CREATININE, SERUM 0.51 mg/dL (0.72-1.25)
[2021-05-06] MEDS: MULTIVITAMINS/MINERALS TAB PO SCH (10:38)
[2021-05-06] MEDS: SENNA-S TABLET PO SCH (10:38)
[2021-05-06] MEDS: MIRTAZAPINE 15 MG TAB PO SCH (21:25)
[2021-05-07] VITALS (25 sets, daily range): BP systolic 91–117; BP diastolic 62–87
[2021-05-07] MEDS: PROPOFOL IV EMULSION 10MG/ML 100 ML IV SCH ×4 (02:22→20:05)
[2021-05-07] MEDS ORDERED: SODIUM CHLORIDE 0.9% 250ML 250 ML ONE (05:39)
[2021-05-07] MEDS ORDERED: Vancomycin IV 1 GM VIAL ONE ×2 (05:39→08:49)
[2021-05-07 05:41] LABS: BASOPHILS # (AUTO) 0.2 (0.0-0.1); BASOPHILS % 2.2 % (0.0-1.0); EOSINOPHILS # (AUTO) 1.4 (0.0-0.4); EOSINOPHILS % 12.6 % (0.0-6.0); HEMOGLOBIN 11.1 g/dL (14.0-18.0); LYMPHOCYTES # (AUTO) 1.1 (1.0-3.2); LYMPHOCYTES % 9.5 % (18.0-39.1); MEAN CORPUSCULAR HEMOGLOBIN 29.3 pg (28-32); MEAN CORPUSCULAR VOLUME 97.6 fL (81-99); MONOCYTES # (AUTO) 0.9 (0.2-0.8); MONOCYTES % 8.5 % (4.4-11.3); NEUTROPHILS # (AUTO) 7.1 (2.1-6.9); NEUTROPHILS % 64.5 % (38.7-80.0); PLATELET COUNT 462 x10e3/uL (140-360); RED BLOOD COUNT 3.79 x10e6/uL (4.3-5.7); RED CELL DISTRIBUTION WIDTH 16.9 % (11.7-14.4)
[2021-05-07 06:19] LABS: ALBUMIN 1.8 g/dL (3.5-5.0); ALBUMIN/GLOBULIN RATIO 0.5 (0.8-2.0); ANION GAP 12.3 mmol/L (8-16); CALCIUM 8.5 mg/dL (8.4-10.2); CREATININE, SERUM 0.52 mg/dL (0.72-1.25); POTASSIUM 4.3 mmol/L (3.5-5.1)
[2021-05-07] MEDS ORDERED: HEPARIN SOD/SOD CHLORIDE 1,000 ML ONE (06:32)
[2021-05-07] MEDS ORDERED: NOREPINEPHRINE INJ 4MG/4ML 4 ML ONE (07:01)
[2021-05-07] MEDS ORDERED: SODIUM CHLORIDE 0.9% 50ML 100 ML ONE (07:01)
[2021-05-07] MEDS ORDERED: SODIUM CHLORIDE 0.9% 50ML 50 ML ONE (08:49)
[2021-05-07] MEDS: SENNA-S TABLET PO SCH (09:00)
[2021-05-07] MEDS: MULTIVITAMINS/MINERALS TAB PO SCH (09:00)
[2021-05-07] MEDS ORDERED: THROMBIN FOR SOLN 5,000 UNIT VIAL ONE (09:14)
[2021-05-07 13:47] LABS: ABG HCO3 39 mmol/L (22-26); ABG PCO2 60 mmHg (35-45); ABG PH 7.42 (7.35-7.45); ABG PO2 71 mmHg (80-105); ABG TCO2 40
[2021-05-07 14:48] LABS: BODY FLUID APPEARANCE SL.CLOUDY; BODY FLUID COLOR YELLOW; BODY FLUID TYPE PLEURAL; RBC,BODY FLUID 1000 cells/uL; WBC,BODY FLUID 52 cells/uL
[2021-05-07 15:33] LABS: LYMPHOCYTES,BODY FLUID 57 %; MONO/MACROPHG,BODY FLUID 36 %; NEUTROPHILS,BODY FLUID 6 %; OTHER CELLS,BODY FLUID 1 %
[2021-05-07] MEDS ORDERED: SEVOFLURANE INHAL SOLN 250 ML PEN BTL ONE (16:10)
[2021-05-07] MEDS ORDERED: ROCURONIUM BROMIDE 10 MG/ML 5ML VIAL IV ONE (16:10)
[2021-05-07] MEDS ORDERED: DEXAMETHASONE SOD PHOS INJ 4 MG/ML SDV ONE (16:10)
[2021-05-07] MEDS ORDERED: POVIDONE IODINE 0.05% 0.05 % ML PO ONE (16:10)
[2021-05-07] MEDS ORDERED: ETOMIDATE 2 MG/ML 10 ML INJ IV ONE (16:10)
[2021-05-07] MEDS: MIRTAZAPINE 15 MG TAB PO SCH (20:04)
[2021-05-08] VITALS (60 sets, daily range): BP systolic 82–120; BP diastolic 48–88
[2021-05-08] MEDS: PROPOFOL IV EMULSION 10MG/ML 100 ML IV SCH ×5 (00:20→19:31)
[2021-05-08 05:00] LABS: BASOPHILS # (AUTO) 0.2 (0.0-0.1); EOSINOPHILS # (AUTO) 0.9 (0.0-0.4); EOSINOPHILS % 8.8 % (0.0-6.0); HEMATOCRIT 32.9 % (38.2-49.6); HEMOGLOBIN 10.2 g/dL (14.0-18.0); LYMPHOCYTES # (AUTO) 0.9 (1.0-3.2); LYMPHOCYTES % 9.5 % (18.0-39.1); MEAN CORPUSCULAR HEMOGLOBIN 29.6 pg (28-32); MEAN CORPUSCULAR VOLUME 95.4 fL (81-99); MONOCYTES # (AUTO) 0.7 (0.2-0.8); MONOCYTES % 7.5 % (4.4-11.3); NEUTROPHILS # (AUTO) 6.5 (2.1-6.9); NEUTROPHILS % 67.4 % (38.7-80.0); PLATELET COUNT 435 x10e3/uL (140-360); RED BLOOD COUNT 3.45 x10e6/uL (4.3-5.7); RED CELL DISTRIBUTION WIDTH 16.5 % (11.7-14.4)
[2021-05-08 05:24] LABS: ALBUMIN 1.5 g/dL (3.5-5.0); ALBUMIN/GLOBULIN RATIO 0.4 (0.8-2.0); ANION GAP 13.6 mmol/L (8-16); CREATININE, SERUM 0.53 mg/dL (0.72-1.25); POTASSIUM 4.6 mmol/L (3.5-5.1)
[2021-05-08 07:55] LABS: ABG HCO3 39 mmol/L (22-26); ABG PCO2 56 mmHg (35-45); ABG PH 7.45 (7.35-7.45); ABG PO2 78 mmHg (80-105); ABG TCO2 40
[2021-05-08] MEDS: MULTIVITAMINS/MINERALS TAB PO SCH (09:38)
[2021-05-08] MEDS: SENNA-S TABLET PO SCH (09:39)
[2021-05-08] MEDS ORDERED: AMIODARONE HCL 150 MG/100 ML BAG IV ONE (19:00)
[2021-05-08] MEDS ORDERED: AMIODARONE 900MG 900 MG in Premix Bag 1 BAG IV ONE (19:00)
[2021-05-08] MEDS ORDERED: AMIODARONE 900MG 500 ML IV ONE (19:14)
[2021-05-08] MEDS: MIRTAZAPINE 15 MG TAB PO SCH (20:21)
[2021-05-09] VITALS (26 sets, daily range): BP systolic 94–135; BP diastolic 6–82
[2021-05-09] MEDS: PROPOFOL IV EMULSION 10MG/ML 100 ML IV SCH ×5 (00:49→20:33)
[2021-05-09 05:02] LABS: BASOPHILS # (AUTO) 0.2 (0.0-0.1); BASOPHILS % 1.8 % (0.0-1.0); EOSINOPHILS # (AUTO) 1.7 (0.0-0.4); EOSINOPHILS % 13.7 % (0.0-6.0); HEMATOCRIT 33.7 % (38.2-49.6); HEMOGLOBIN 10.4 g/dL (14.0-18.0); LYMPHOCYTES # (AUTO) 0.9 (1.0-3.2); LYMPHOCYTES % 7.1 % (18.0-39.1); MEAN CORPUSCULAR HEMOGLOBIN 29.9 pg (28-32); MEAN CORPUSCULAR HGB CONC 30.9 g/dL (31-35); MEAN CORPUSCULAR VOLUME 96.8 fL (81-99); MONOCYTES # (AUTO) 0.7 (0.2-0.8); MONOCYTES % 5.2 % (4.4-11.3); NEUTROPHILS # (AUTO) 8.5 (2.1-6.9); NEUTROPHILS % 68.1 % (38.7-80.0); PLATELET COUNT 466 x10e3/uL (140-360); RED BLOOD COUNT 3.48 x10e6/uL (4.3-5.7); RED CELL DISTRIBUTION WIDTH 16.5 % (11.7-14.4)
[2021-05-09 05:23] LABS: ALBUMIN 1.5 g/dL (3.5-5.0); ALBUMIN/GLOBULIN RATIO 0.4 (0.8-2.0); ANION GAP 12.1 mmol/L (8-16); CALCIUM 8.1 mg/dL (8.4-10.2); CREATININE, SERUM 0.49 mg/dL (0.72-1.25); POTASSIUM 4.1 mmol/L (3.5-5.1)
[2021-05-09 07:27] LABS: ABG PCO2 66 mmHg (35-45); ABG PH 7.39 (7.35-7.45)
[2021-05-09 07:28] LABS: ABG HCO3 40 mmol/L (22-26); ABG PO2 56 mmHg (80-105); ABG TCO2 42
[2021-05-09] MEDS: SENNA-S TABLET PO SCH (09:09)
[2021-05-09] MEDS: MULTIVITAMINS/MINERALS TAB PO SCH (09:09)
[2021-05-09] MEDS: AMIODARONE HCL 200 MG TAB PO SCH ×3 (09:30→18:11)
[2021-05-09] MEDS: MIRTAZAPINE 15 MG TAB PO SCH (20:29)
[2021-05-10] VITALS (27 sets, daily range): BP systolic 100–142; BP diastolic 61–87
[2021-05-10] MEDS: PROPOFOL IV EMULSION 10MG/ML 100 ML IV SCH ×5 (03:00→21:29)
[2021-05-10 05:10] LABS: BASOPHILS # (AUTO) 0.2 (0.0-0.1); BASOPHILS % 1.4 % (0.0-1.0); EOSINOPHILS # (AUTO) 1.2 (0.0-0.4); EOSINOPHILS % 9.5 % (0.0-6.0); LYMPHOCYTES # (AUTO) 0.7 (1.0-3.2); LYMPHOCYTES % 5.7 % (18.0-39.1); MEAN CORPUSCULAR HEMOGLOBIN 29.3 pg (28-32); MEAN CORPUSCULAR HGB CONC 30.3 g/dL (31-35); MEAN CORPUSCULAR VOLUME 96.8 fL (81-99); MONOCYTES # (AUTO) 0.7 (0.2-0.8); MONOCYTES % 5.6 % (4.4-11.3); NEUTROPHILS # (AUTO) 8.9 (2.1-6.9); PLATELET COUNT 496 x10e3/uL (140-360); RED BLOOD COUNT 3.41 x10e6/uL (4.3-5.7); RED CELL DISTRIBUTION WIDTH 16.8 % (11.7-14.4)
[2021-05-10 05:56] LABS: ALBUMIN 1.4 g/dL (3.5-5.0); ALBUMIN/GLOBULIN RATIO 0.4 (0.8-2.0); CALCIUM 8.4 mg/dL (8.4-10.2)
[2021-05-10 06:46] LABS: CREATININE, SERUM 0.49 mg/dL (0.72-1.25)
[2021-05-10 07:29] LABS: ABG HCO3 17 mmol/L (22-26); ABG PCO2 69 mmHg (35-45); ABG PH 7.39 (7.35-7.45); ABG PO2 70 mmHg (80-105)
[2021-05-10 07:30] LABS: ABG TCO2 42
[2021-05-10] MEDS: AMIODARONE HCL 200 MG TAB PO SCH ×2 (09:01→20:51)
[2021-05-10] MEDS: MULTIVITAMINS/MINERALS TAB PO SCH (09:01)
[2021-05-10] MEDS: SENNA-S TABLET PO SCH (09:01)
[2021-05-10] MEDS: NYSTATIN 15 GM POWDER UD BTL TOP SCH (16:36)
[2021-05-10] MEDS: MIRTAZAPINE 15 MG TAB PO SCH (20:51)
[2021-05-11] VITALS (59 sets, daily range): BP systolic 89–145; BP diastolic 52–91
[2021-05-11] MEDS: PROPOFOL IV EMULSION 10MG/ML 100 ML IV SCH ×4 (02:00→23:23)
[2021-05-11 05:01] LABS: BASOPHILS # (AUTO) 0.2 (0.0-0.1); BASOPHILS % 1.7 % (0.0-1.0); EOSINOPHILS # (AUTO) 1.2 (0.0-0.4); EOSINOPHILS % 11.4 % (0.0-6.0); HEMATOCRIT 31.6 % (38.2-49.6); HEMOGLOBIN 9.7 g/dL (14.0-18.0); LYMPHOCYTES # (AUTO) 0.7 (1.0-3.2); LYMPHOCYTES % 6.6 % (18.0-39.1); MEAN CORPUSCULAR HEMOGLOBIN 29.7 pg (28-32); MEAN CORPUSCULAR HGB CONC 30.7 g/dL (31-35); MEAN CORPUSCULAR VOLUME 96.6 fL (81-99); MONOCYTES # (AUTO) 0.6 (0.2-0.8); MONOCYTES % 5.6 % (4.4-11.3); NEUTROPHILS # (AUTO) 7.6 (2.1-6.9); PLATELET COUNT 573 x10e3/uL (140-360); RED BLOOD COUNT 3.27 x10e6/uL (4.3-5.7); RED CELL DISTRIBUTION WIDTH 16.7 % (11.7-14.4)
[2021-05-11 05:38] LABS: ALBUMIN 1.4 g/dL (3.5-5.0); ALBUMIN/GLOBULIN RATIO 0.4 (0.8-2.0); ANION GAP 12.2 mmol/L (8-16); CALCIUM 8.3 mg/dL (8.4-10.2); CREATININE, SERUM 0.47 mg/dL (0.72-1.25); POTASSIUM 4.2 mmol/L (3.5-5.1)
[2021-05-11] MEDS: MULTIVITAMINS/MINERALS TAB PO SCH (08:26)
[2021-05-11] MEDS: AMIODARONE HCL 200 MG TAB PO SCH ×2 (08:26→20:42)
[2021-05-11] MEDS: SENNA-S TABLET PO SCH (08:26)
[2021-05-11] MEDS: NYSTATIN 15 GM POWDER UD BTL TOP SCH ×2 (08:26→20:42)
[2021-05-11] MEDS: MIRTAZAPINE 15 MG TAB PO SCH (20:42)
[2021-05-12] VITALS (73 sets, daily range): BP systolic 87–136; BP diastolic 55–82
[2021-05-12] MEDS: PROPOFOL IV EMULSION 10MG/ML 100 ML IV SCH ×6 (03:32→23:53)
[2021-05-12 04:51] LABS: BASOPHILS # (AUTO) 0.2 (0.0-0.1); BASOPHILS % 1.8 % (0.0-1.0); EOSINOPHILS # (AUTO) 1.5 (0.0-0.4); EOSINOPHILS % 11.1 % (0.0-6.0); HEMATOCRIT 32.4 % (38.2-49.6); HEMOGLOBIN 9.9 g/dL (14.0-18.0); LYMPHOCYTES # (AUTO) 0.8 (1.0-3.2); LYMPHOCYTES % 6.1 % (18.0-39.1); MEAN CORPUSCULAR HEMOGLOBIN 29.5 pg (28-32); MEAN CORPUSCULAR HGB CONC 30.6 g/dL (31-35); MEAN CORPUSCULAR VOLUME 96.4 fL (81-99); MONOCYTES # (AUTO) 0.9 (0.2-0.8); MONOCYTES % 7.1 % (4.4-11.3); PLATELET COUNT 611 x10e3/uL (140-360); RED BLOOD COUNT 3.36 x10e6/uL (4.3-5.7); RED CELL DISTRIBUTION WIDTH 16.6 % (11.7-14.4)
[2021-05-12 05:10] LABS: ALBUMIN 1.4 g/dL (3.5-5.0); ALBUMIN/GLOBULIN RATIO 0.4 (0.8-2.0); CALCIUM 8.4 mg/dL (8.4-10.2); CREATININE, SERUM 0.46 mg/dL (0.72-1.25)
[2021-05-12] MEDS: SENNA-S TABLET PO SCH (07:45)
[2021-05-12] MEDS: AMIODARONE HCL 200 MG TAB PO SCH ×2 (07:45→21:08)
[2021-05-12] MEDS: NYSTATIN 15 GM POWDER UD BTL TOP SCH ×2 (07:45→16:00)
[2021-05-12] MEDS: MULTIVITAMINS/MINERALS TAB PO SCH (07:45)
[2021-05-12] MEDS: MIRTAZAPINE 15 MG TAB PO SCH (21:08)
[2021-05-13] VITALS (63 sets, daily range): BP systolic 84–138; BP diastolic 54–81
[2021-05-13] MEDS: PROPOFOL IV EMULSION 10MG/ML 100 ML IV SCH ×3 (03:47→22:28)
[2021-05-13] MEDS: AMIODARONE HCL 200 MG TAB PO SCH ×2 (08:04→21:45)
[2021-05-13] MEDS: MULTIVITAMINS/MINERALS TAB PO SCH (08:04)
[2021-05-13] MEDS: SENNA-S TABLET PO SCH (08:05)
[2021-05-13] MEDS: NYSTATIN 15 GM POWDER UD BTL TOP SCH ×2 (08:05→18:03)
[2021-05-13 13:07] LABS: ABG HCO3 40 mmol/L (22-26); ABG PCO2 60 mmHg (35-45); ABG PH 7.43 (7.35-7.45); ABG PO2 83 mmHg (80-105); ABG TCO2 42
[2021-05-13] MEDS: MIRTAZAPINE 15 MG TAB PO SCH (21:45)
[2021-05-14] VITALS (36 sets, daily range): BP systolic 80–138; BP diastolic 48–86
[2021-05-14] MEDS: PROPOFOL IV EMULSION 10MG/ML 100 ML IV SCH ×4 (04:02→22:17)
[2021-05-14 06:29] LABS: BASOPHILS # (AUTO) 0.3 (0.0-0.1); BASOPHILS % 2.1 % (0.0-1.0); EOSINOPHILS # (AUTO) 2.2 (0.0-0.4); EOSINOPHILS % 15.3 % (0.0-6.0); HEMATOCRIT 29.9 % (38.2-49.6); HEMOGLOBIN 9.6 g/dL (14.0-18.0); LYMPHOCYTES # (AUTO) 0.7 (1.0-3.2); LYMPHOCYTES % 4.9 % (18.0-39.1); MEAN CORPUSCULAR HEMOGLOBIN 29.8 pg (28-32); MEAN CORPUSCULAR HGB CONC 32.1 g/dL (31-35); MEAN CORPUSCULAR VOLUME 92.9 fL (81-99); MONOCYTES # (AUTO) 1.1 (0.2-0.8); MONOCYTES % 7.7 % (4.4-11.3); NEUTROPHILS # (AUTO) 8.6 (2.1-6.9); NEUTROPHILS % 60.1 % (38.7-80.0); PLATELET COUNT 604 x10e3/uL (140-360); RED BLOOD COUNT 3.22 x10e6/uL (4.3-5.7); RED CELL DISTRIBUTION WIDTH 16.5 % (11.7-14.4)
[2021-05-14 07:04] LABS: ALBUMIN 1.4 g/dL (3.5-5.0); ALBUMIN/GLOBULIN RATIO 0.4 (0.8-2.0); ANION GAP 11.1 mmol/L (8-16); CALCIUM 7.7 mg/dL (8.4-10.2); CREATININE, SERUM 0.5 mg/dL (0.72-1.25); POTASSIUM 4.1 mmol/L (3.5-5.1)
[2021-05-14] MEDS: SENNA-S TABLET PO SCH (08:37)
[2021-05-14] MEDS: NYSTATIN 15 GM POWDER UD BTL TOP SCH ×2 (08:37→16:32)
[2021-05-14] MEDS: MULTIVITAMINS/MINERALS TAB PO SCH (08:37)
[2021-05-14] MEDS: AMIODARONE HCL 200 MG TAB PO SCH ×2 (08:37→20:34)
[2021-05-14 09:26] LABS: ABG PH 7.41 (7.35-7.45)
[2021-05-14 09:27] LABS: ABG PCO2 67 mmHg (35-45)
[2021-05-14 09:28] LABS: ABG HCO3 42 mmol/L (22-26); ABG PO2 64 mmHg (80-105); ABG TCO2 44
[2021-05-14 11:04] LABS: BAND NEUTROPHILS % (MANUAL) 7 %; EOSINOPHILS % (MANUAL) 4 % (0-7); LYMPHOCYTES % (MANUAL) 9 % (19-48); MONOCYTES % (MANUAL) 6 % (3.4-9.0); MYELOCYTES % (MANUAL) 6 % (0-0); NEUTROPHILS % (MANUAL) 68 % (40-74)
[2021-05-14 11:05] LABS: PLATELET ESTIMATE MODERATELY INCREASED; PLATELET MORPHOLOGY COMMENT FEW LARGE; RBC MORPHOLOGY COMMENT NORMAL
[2021-05-14] MEDS: FENTANYL 2000MCG/NS 250 250 ML IV SCH (12:39)
[2021-05-14] MEDS: MIRTAZAPINE 15 MG TAB PO SCH (20:34)
[2021-05-15] VITALS (34 sets, daily range): BP systolic 79–139; BP diastolic 47–95
[2021-05-15] MEDS: PROPOFOL IV EMULSION 10MG/ML 100 ML IV SCH ×6 (04:25→23:56)
[2021-05-15 06:15] LABS: BASOPHILS # (AUTO) 0.3 (0.0-0.1); BASOPHILS % 1.7 % (0.0-1.0); EOSINOPHILS # (AUTO) 2.6 (0.0-0.4); EOSINOPHILS % 16.9 % (0.0-6.0); HEMATOCRIT 29.5 % (38.2-49.6); HEMOGLOBIN 9.3 g/dL (14.0-18.0); LYMPHOCYTES % 6.2 % (18.0-39.1); MEAN CORPUSCULAR HEMOGLOBIN 29.6 pg (28-32); MEAN CORPUSCULAR HGB CONC 31.5 g/dL (31-35); MEAN CORPUSCULAR VOLUME 93.9 fL (81-99); MONOCYTES # (AUTO) 1.3 (0.2-0.8); MONOCYTES % 8.4 % (4.4-11.3); NEUTROPHILS # (AUTO) 8.7 (2.1-6.9); NEUTROPHILS % 56.2 % (38.7-80.0); PLATELET COUNT 604 x10e3/uL (140-360); RED BLOOD COUNT 3.14 x10e6/uL (4.3-5.7); RED CELL DISTRIBUTION WIDTH 16.8 % (11.7-14.4)
[2021-05-15 06:42] LABS: ALBUMIN 1.5 g/dL (3.5-5.0); ALBUMIN/GLOBULIN RATIO 0.4 (0.8-2.0); ANION GAP 11.9 mmol/L (8-16); CALCIUM 8.4 mg/dL (8.4-10.2); CREATININE, SERUM 0.49 mg/dL (0.72-1.25); POTASSIUM 3.9 mmol/L (3.5-5.1)
[2021-05-15 08:13] LABS: BAND NEUTROPHILS % (MANUAL) 6 %; EOSINOPHILS % (MANUAL) 13 % (0-7); LYMPHOCYTES % (MANUAL) 6 % (19-48); METAMYELOCYTES % (MANUAL) 5 % (0-0); MONOCYTES % (MANUAL) 2 % (3.4-9.0); MYELOCYTES % (MANUAL) 6 % (0-0); NEUTROPHILS % (MANUAL) 58 % (40-74); PLATELET ESTIMATE SLIGHTLY INCREASED; PLATELET MORPHOLOGY COMMENT NORMAL; RBC MORPHOLOGY COMMENT NORMAL
[2021-05-15] MEDS: SENNA-S TABLET PO SCH (08:49)
[2021-05-15] MEDS: NYSTATIN 15 GM POWDER UD BTL TOP SCH ×2 (08:49→16:58)
[2021-05-15] MEDS: MULTIVITAMINS/MINERALS TAB PO SCH (08:49)
[2021-05-15 08:59] LABS: ABG PH 7.41 (7.35-7.45)
[2021-05-15 09:00] LABS: ABG HCO3 43 mmol/L (22-26); ABG PCO2 67 mmHg (35-45); ABG PO2 65 mmHg (80-105); ABG TCO2 44
[2021-05-15] MEDS: NOREPINEPHRINE 8 MG/D5W 250 ML 250 ML IV SCH ×2 (09:10→12:11)
[2021-05-15] MEDS: AMIODARONE HCL 200 MG TAB PO SCH ×2 (09:32→21:33)
[2021-05-15] MEDS: MIRTAZAPINE 15 MG TAB PO SCH (21:33)
[2021-05-16] VITALS (68 sets, daily range): BP systolic 78–153; BP diastolic 56–97
[2021-05-16] MEDS: PROPOFOL IV EMULSION 10MG/ML 100 ML IV SCH ×5 (03:25→23:43)
[2021-05-16 05:13] LABS: BASOPHILS # (AUTO) 0.5 (0.0-0.1); BASOPHILS % 2.2 % (0.0-1.0); EOSINOPHILS # (AUTO) 2.5 (0.0-0.4); EOSINOPHILS % 12.2 % (0.0-6.0); HEMATOCRIT 32.6 % (38.2-49.6); HEMOGLOBIN 10.1 g/dL (14.0-18.0); LYMPHOCYTES # (AUTO) 1.5 (1.0-3.2); LYMPHOCYTES % 7.2 % (18.0-39.1); MEAN CORPUSCULAR HEMOGLOBIN 29.4 pg (28-32); MONOCYTES # (AUTO) 1.4 (0.2-0.8); MONOCYTES % 6.8 % (4.4-11.3); NEUTROPHILS # (AUTO) 12.3 (2.1-6.9); NEUTROPHILS % 59.1 % (38.7-80.0); PLATELET COUNT 697 x10e3/uL (140-360); RED BLOOD COUNT 3.43 x10e6/uL (4.3-5.7); RED CELL DISTRIBUTION WIDTH 16.9 % (11.7-14.4)
[2021-05-16 05:37] LABS: ALBUMIN 1.6 g/dL (3.5-5.0); ALBUMIN/GLOBULIN RATIO 0.4 (0.8-2.0); ANION GAP 13.8 mmol/L (8-16); CALCIUM 8.2 mg/dL (8.4-10.2); CREATININE, SERUM 0.52 mg/dL (0.72-1.25); POTASSIUM 3.8 mmol/L (3.5-5.1)
[2021-05-16] MEDS: SENNA-S TABLET PO SCH (08:29)
[2021-05-16] MEDS: MULTIVITAMINS/MINERALS TAB PO SCH (08:29)
[2021-05-16] MEDS: AMIODARONE HCL 200 MG TAB PO SCH ×2 (08:29→20:53)
[2021-05-16] MEDS: NYSTATIN 15 GM POWDER UD BTL TOP SCH ×2 (08:33→16:02)
[2021-05-16 10:37] LABS: BAND NEUTROPHILS % (MANUAL) 10 %; EOSINOPHILS % (MANUAL) 15 % (0-7); LYMPHOCYTES % (MANUAL) 9 % (19-48); MONOCYTES % (MANUAL) 13 % (3.4-9.0); NEUTROPHILS % (MANUAL) 53 % (40-74); PLATELET ESTIMATE MODERATELY INCREASED; RBC MORPHOLOGY COMMENT NORMAL
[2021-05-16 10:38] LABS: PLATELET MORPHOLOGY COMMENT NORMAL
[2021-05-16] MEDS: FENTANYL 2000MCG/NS 250 250 ML IV SCH (11:45)
[2021-05-16] MEDS: NOREPINEPHRINE 8 MG/D5W 250 ML 250 ML IV SCH (16:03)
[2021-05-16] MEDS: MIRTAZAPINE 15 MG TAB PO SCH (20:53)
[2021-05-17] VITALS (69 sets, daily range): BP systolic 79–143; BP diastolic 48–90
[2021-05-17] MEDS: NOREPINEPHRINE 8 MG/D5W 250 ML 250 ML IV SCH ×6 (01:20→15:42)
[2021-05-17] MEDS: PROPOFOL IV EMULSION 10MG/ML 100 ML IV SCH ×7 (02:29→22:32)
[2021-05-17] MEDS: MULTIVITAMINS/MINERALS TAB PO SCH (08:13)
[2021-05-17] MEDS: SENNA-S TABLET PO SCH (08:13)
[2021-05-17] MEDS: AMIODARONE HCL 200 MG TAB PO SCH ×2 (08:13→21:19)
[2021-05-17] MEDS: NYSTATIN 15 GM POWDER UD BTL TOP SCH (08:13)
[2021-05-17] MEDS ORDERED: SODIUM CHLORIDE 0.9% 1000ML 1,000 ML IV ONE (11:00)
[2021-05-17] MEDS ORDERED: Vancomycin IV 1 GM in SODIUM CHLORIDE 0.9% 250ML 250 ML IV ONE (11:30)
[2021-05-17] MEDS: FENTANYL 2000MCG/NS 250 250 ML IV SCH ×2 (11:45→19:07)
[2021-05-17 13:07] LABS: BASOPHILS # (AUTO) 0.3 (0.0-0.1); BASOPHILS % 1.6 % (0.0-1.0); EOSINOPHILS # (AUTO) 3.1 (0.0-0.4); EOSINOPHILS % 15.9 % (0.0-6.0); HEMATOCRIT 29.2 % (38.2-49.6); HEMOGLOBIN 9.1 g/dL (14.0-18.0); LYMPHOCYTES # (AUTO) 0.9 (1.0-3.2); LYMPHOCYTES % 4.5 % (18.0-39.1); MEAN CORPUSCULAR HEMOGLOBIN 29.4 pg (28-32); MEAN CORPUSCULAR HGB CONC 31.2 g/dL (31-35); MEAN CORPUSCULAR VOLUME 94.5 fL (81-99); MONOCYTES # (AUTO) 1.1 (0.2-0.8); MONOCYTES % 5.5 % (4.4-11.3); NEUTROPHILS # (AUTO) 12.1 (2.1-6.9); NEUTROPHILS % 62.3 % (38.7-80.0); PLATELET COUNT 570 x10e3/uL (140-360); RED BLOOD COUNT 3.09 x10e6/uL (4.3-5.7); RED CELL DISTRIBUTION WIDTH 16.6 % (11.7-14.4)
[2021-05-17 13:46] LABS: ABG HCO3 39 mmol/L (22-26); ABG PCO2 51 mmHg (35-45); ABG PH 7.49 (7.35-7.45); ABG PO2 94 mmHg (80-105); ABG TCO2 40
[2021-05-17] MEDS: MEROPENEM 1 GM in SODIUM CHLORIDE 0.9% 100 ML IV SCH ×2 (14:04→21:19)
[2021-05-17] MEDS: MIRTAZAPINE 15 MG TAB PO SCH (21:19)
[2021-05-18] VITALS (40 sets, daily range): BP systolic 69–143; BP diastolic 42–82
[2021-05-18] MEDS: NOREPINEPHRINE 8 MG/D5W 250 ML 250 ML IV SCH ×2 (00:30→04:30)
[2021-05-18] MEDS: PROPOFOL IV EMULSION 10MG/ML 100 ML IV SCH ×4 (02:18→20:22)
[2021-05-18 05:07] LABS: BASOPHILS # (AUTO) 0.3 (0.0-0.1); BASOPHILS % 1.2 % (0.0-1.0); EOSINOPHILS # (AUTO) 2.4 (0.0-0.4); EOSINOPHILS % 10.3 % (0.0-6.0); HEMOGLOBIN 9.2 g/dL (14.0-18.0); LYMPHOCYTES # (AUTO) 0.8 (1.0-3.2); LYMPHOCYTES % 3.3 % (18.0-39.1); MEAN CORPUSCULAR HEMOGLOBIN 29.5 pg (28-32); MEAN CORPUSCULAR HGB CONC 31.7 g/dL (31-35); MEAN CORPUSCULAR VOLUME 92.9 fL (81-99); MONOCYTES # (AUTO) 1.2 (0.2-0.8); MONOCYTES % 5.3 % (4.4-11.3); NEUTROPHILS # (AUTO) 16.4 (2.1-6.9); NEUTROPHILS % 70.9 % (38.7-80.0); PLATELET COUNT 541 x10e3/uL (140-360); RED BLOOD COUNT 3.12 x10e6/uL (4.3-5.7); RED CELL DISTRIBUTION WIDTH 16.6 % (11.7-14.4)
[2021-05-18 05:34] LABS: ALBUMIN 1.4 g/dL (3.5-5.0); ALBUMIN/GLOBULIN RATIO 0.4 (0.8-2.0); ANION GAP 13.5 mmol/L (8-16); CALCIUM 7.9 mg/dL (8.4-10.2); CREATININE, SERUM 0.51 mg/dL (0.72-1.25); POTASSIUM 3.5 mmol/L (3.5-5.1)
[2021-05-18] MEDS: MEROPENEM 1 GM in SODIUM CHLORIDE 0.9% 100 ML IV SCH ×3 (05:38→20:46)
[2021-05-18] MEDS: AMIODARONE HCL 200 MG TAB PO SCH ×2 (08:05→20:47)
[2021-05-18 08:08] LABS: LYMPHOCYTES % (MANUAL) 3 % (19-48); NEUTROPHILS % (MANUAL) 42 % (40-74)
[2021-05-18 08:09] LABS: BAND NEUTROPHILS % (MANUAL) 35 %; EOSINOPHILS % (MANUAL) 11 % (0-7); METAMYELOCYTES % (MANUAL) 4 % (0-0); MONOCYTES % (MANUAL) 4 % (3.4-9.0); MYELOCYTES % (MANUAL) 1 % (0-0); PLATELET ESTIMATE SLIGHTLY INCREASED; PLATELET MORPHOLOGY COMMENT FEW LARGE; RBC MORPHOLOGY COMMENT NORMAL
[2021-05-18] MEDS: FENTANYL 2000MCG/NS 250 250 ML IV SCH (11:45)
[2021-05-18] MEDS: MULTIVITAMINS/MINERALS TAB PO SCH (16:49)
[2021-05-18] MEDS: SENNA-S TABLET PO SCH (16:49)
[2021-05-18] MEDS: MIRTAZAPINE 15 MG TAB PO SCH (20:46)
[2021-05-19] VITALS (26 sets, daily range): BP systolic 76–131; BP diastolic 56–84
[2021-05-19] MEDS: PROPOFOL IV EMULSION 10MG/ML 100 ML IV SCH ×7 (00:12→21:58)
[2021-05-19] MEDS: MEROPENEM 1 GM in SODIUM CHLORIDE 0.9% 100 ML IV SCH ×3 (06:24→21:18)
[2021-05-19] MEDS: MULTIVITAMINS/MINERALS TAB PO SCH (08:26)
[2021-05-19] MEDS: SENNA-S TABLET PO SCH (08:26)
[2021-05-19] MEDS: NOREPINEPHRINE 8 MG/D5W 250 ML 250 ML IV SCH (08:45)
[2021-05-19 09:00] LABS: BASOPHILS # (AUTO) 0.4 (0.0-0.1); BASOPHILS % 1.2 % (0.0-1.0); EOSINOPHILS # (AUTO) 2.6 (0.0-0.4); EOSINOPHILS % 9.2 % (0.0-6.0); HEMATOCRIT 32.7 % (38.2-49.6); HEMOGLOBIN 10.3 g/dL (14.0-18.0); LYMPHOCYTES # (AUTO) 0.7 (1.0-3.2); LYMPHOCYTES % 2.6 % (18.0-39.1); MEAN CORPUSCULAR HEMOGLOBIN 29.8 pg (28-32); MEAN CORPUSCULAR HGB CONC 31.5 g/dL (31-35); MEAN CORPUSCULAR VOLUME 94.5 fL (81-99); MONOCYTES # (AUTO) 1.7 (0.2-0.8); MONOCYTES % 5.9 % (4.4-11.3); NEUTROPHILS % 74.9 % (38.7-80.0); PLATELET COUNT 511 x10e3/uL (140-360); RED BLOOD COUNT 3.46 x10e6/uL (4.3-5.7); RED CELL DISTRIBUTION WIDTH 16.8 % (11.7-14.4)
[2021-05-19] MEDS: AMIODARONE HCL 200 MG TAB PO SCH ×2 (09:00→21:17)
[2021-05-19 09:14] LABS: ANION GAP 12.9 mmol/L (8-16); CALCIUM 8.3 mg/dL (8.4-10.2); CREATININE, SERUM 0.52 mg/dL (0.72-1.25); POTASSIUM 3.9 mmol/L (3.5-5.1)
[2021-05-19] MEDS: FENTANYL 2000MCG/NS 250 250 ML IV SCH (11:45)
[2021-05-19] MEDS: MIRTAZAPINE 15 MG TAB PO SCH (21:18)
[2021-05-20] VITALS (26 sets, daily range): BP systolic 77–143; BP diastolic 64–90
[2021-05-20] MEDS: NOREPINEPHRINE 8 MG/D5W 250 ML 250 ML IV SCH ×2 (01:27→15:01)
[2021-05-20] MEDS: PROPOFOL IV EMULSION 10MG/ML 100 ML IV SCH ×6 (01:28→22:11)
[2021-05-20 05:10] LABS: BASOPHILS # (AUTO) 0.3 (0.0-0.1); BASOPHILS % 1.2 % (0.0-1.0); EOSINOPHILS # (AUTO) 2.8 (0.0-0.4); EOSINOPHILS % 10.5 % (0.0-6.0); HEMATOCRIT 32.1 % (38.2-49.6); HEMOGLOBIN 10.1 g/dL (14.0-18.0); LYMPHOCYTES # (AUTO) 0.9 (1.0-3.2); LYMPHOCYTES % 3.6 % (18.0-39.1); MEAN CORPUSCULAR HEMOGLOBIN 30.2 pg (28-32); MEAN CORPUSCULAR HGB CONC 31.5 g/dL (31-35); MEAN CORPUSCULAR VOLUME 96.1 fL (81-99); MONOCYTES # (AUTO) 1.5 (0.2-0.8); MONOCYTES % 5.7 % (4.4-11.3); NEUTROPHILS # (AUTO) 18.9 (2.1-6.9); NEUTROPHILS % 72.4 % (38.7-80.0); PLATELET COUNT 483 x10e3/uL (140-360); RED BLOOD COUNT 3.34 x10e6/uL (4.3-5.7); RED CELL DISTRIBUTION WIDTH 16.5 % (11.7-14.4)
[2021-05-20 05:26] LABS: ANION GAP 14.3 mmol/L (8-16); CREATININE, SERUM 0.49 mg/dL (0.72-1.25); POTASSIUM 4.3 mmol/L (3.5-5.1)
[2021-05-20] MEDS: MEROPENEM 1 GM in SODIUM CHLORIDE 0.9% 100 ML IV SCH ×3 (06:03→21:33)
[2021-05-20] MEDS: MULTIVITAMINS/MINERALS TAB PO SCH (08:19)
[2021-05-20] MEDS: AMIODARONE HCL 200 MG TAB PO SCH ×2 (08:19→21:33)
[2021-05-20] MEDS: SENNA-S TABLET PO SCH (08:19)
[2021-05-20 10:01] LABS: BAND NEUTROPHILS % (MANUAL) 5 %; EOSINOPHILS % (MANUAL) 7 % (0-7); LYMPHOCYTES % (MANUAL) 4 % (19-48); MONOCYTES % (MANUAL) 2 % (3.4-9.0); NEUTROPHILS % (MANUAL) 79 % (40-74)
[2021-05-20 10:02] LABS: ANISOCYTOSIS SLIGHT; POIKILOCYTOSIS SLIGHT
[2021-05-20 10:03] LABS: PLATELET ESTIMATE ADEQUATE; PLATELET MORPHOLOGY COMMENT NORMAL
[2021-05-20] MEDS: FENTANYL 2000MCG/NS 250 250 ML IV SCH (11:45)
[2021-05-20] MEDS ORDERED: Vancomycin IV 1 GM in SODIUM CHLORIDE 0.9% 250ML 250 ML IV ONE (13:30)
[2021-05-20] MEDS ORDERED: BISACODYL 10 MG SUPP PR ONE (16:00)
[2021-05-20] MEDS ORDERED: MAGNESIUM HYDROXIDE 30 ML UDC PO ONE (16:00)
[2021-05-20] MEDS ORDERED: HEPARIN SOD/SOD CHLORIDE 1,000 ML IV ONE (16:00)
[2021-05-20] MEDS: MIRTAZAPINE 15 MG TAB PO SCH (21:33)
[2021-05-21] VITALS (56 sets, daily range): BP systolic 78–138; BP diastolic 55–78
[2021-05-21] MEDS: FENTANYL 2000MCG/NS 250 250 ML IV SCH (00:38)
[2021-05-21] MEDS: PROPOFOL IV EMULSION 10MG/ML 100 ML IV SCH ×4 (01:21→18:50)
[2021-05-21 05:49] LABS: BASOPHILS # (AUTO) 0.3 (0.0-0.1); BASOPHILS % 1.3 % (0.0-1.0); EOSINOPHILS # (AUTO) 1.3 (0.0-0.4); EOSINOPHILS % 5.3 % (0.0-6.0); HEMATOCRIT 32.8 % (38.2-49.6); HEMOGLOBIN 10.1 g/dL (14.0-18.0); LYMPHOCYTES # (AUTO) 0.8 (1.0-3.2); LYMPHOCYTES % 3.2 % (18.0-39.1); MEAN CORPUSCULAR HEMOGLOBIN 29.1 pg (28-32); MEAN CORPUSCULAR HGB CONC 30.8 g/dL (31-35); MEAN CORPUSCULAR VOLUME 94.5 fL (81-99); MONOCYTES # (AUTO) 1.6 (0.2-0.8); MONOCYTES % 6.1 % (4.4-11.3); NEUTROPHILS # (AUTO) 19.7 (2.1-6.9); NEUTROPHILS % 78.2 % (38.7-80.0); PLATELET COUNT 440 x10e3/uL (140-360); RED BLOOD COUNT 3.47 x10e6/uL (4.3-5.7); RED CELL DISTRIBUTION WIDTH 16.7 % (11.7-14.4)
[2021-05-21 06:13] LABS: ALBUMIN 1.6 g/dL (3.5-5.0); ALBUMIN/GLOBULIN RATIO 0.4 (0.8-2.0); ANION GAP 10.5 mmol/L (8-16); CALCIUM 8.5 mg/dL (8.4-10.2); CREATININE, SERUM 0.46 mg/dL (0.72-1.25); POTASSIUM 4.5 mmol/L (3.5-5.1)
[2021-05-21] MEDS: MEROPENEM 1 GM in SODIUM CHLORIDE 0.9% 100 ML IV SCH ×3 (06:43→21:13)
[2021-05-21 07:16] LABS: EOSINOPHILS % (MANUAL) 1 % (0-7); LYMPHOCYTES % (MANUAL) 7 % (19-48); NEUTROPHILS % (MANUAL) 92 % (40-74); PLATELET ESTIMATE ADEQUATE; PLATELET MORPHOLOGY COMMENT NORMAL; RBC MORPHOLOGY COMMENT NORMAL
[2021-05-21] MEDS: MULTIVITAMINS/MINERALS TAB PO SCH (08:10)
[2021-05-21] MEDS: SENNA-S TABLET PO SCH (08:10)
[2021-05-21] MEDS: AMIODARONE HCL 200 MG TAB PO SCH ×2 (08:10→21:13)
[2021-05-21] MEDS: MIRTAZAPINE 15 MG TAB PO SCH (21:13)
[2021-05-22] VITALS (24 sets, daily range): BP systolic 76–128; BP diastolic 55–81
[2021-05-22] MEDS: PROPOFOL IV EMULSION 10MG/ML 100 ML IV SCH ×6 (01:25→21:38)
[2021-05-22] MEDS: MEROPENEM 1 GM in SODIUM CHLORIDE 0.9% 100 ML IV SCH ×3 (05:58→21:37)
[2021-05-22] MEDS ORDERED: SODIUM CHLORIDE 0.9% 1000ML 1,000 ML ONE (07:28)
[2021-05-22] MEDS: AMIODARONE HCL 200 MG TAB PO SCH ×2 (07:49→21:37)
[2021-05-22] MEDS: SENNA-S TABLET PO SCH (07:49)
[2021-05-22] MEDS: MULTIVITAMINS/MINERALS TAB PO SCH (07:49)
[2021-05-22] MEDS: NOREPINEPHRINE 8 MG/D5W 250 ML 250 ML IV SCH (08:23)
[2021-05-22] MEDS: FENTANYL 2000MCG/NS 250 250 ML IV SCH (11:45)
[2021-05-22] MEDS: ENOXAPARIN SOD INJ 40 MG/0.4 ML SYR SC SCH (16:04)
[2021-05-22] MEDS: MIRTAZAPINE 15 MG TAB PO SCH (21:37)
[2021-05-23] VITALS (27 sets, daily range): BP systolic 11–122; BP diastolic 52–81
[2021-05-23] MEDS: PROPOFOL IV EMULSION 10MG/ML 100 ML IV SCH ×4 (04:02→19:13)
[2021-05-23 06:09] LABS: BASOPHILS # (AUTO) 0.3 (0.0-0.1); BASOPHILS % 1.3 % (0.0-1.0); EOSINOPHILS # (AUTO) 3.3 (0.0-0.4); EOSINOPHILS % 15.5 % (0.0-6.0); HEMATOCRIT 30.5 % (38.2-49.6); HEMOGLOBIN 9.5 g/dL (14.0-18.0); LYMPHOCYTES # (AUTO) 0.9 (1.0-3.2); LYMPHOCYTES % 4.3 % (18.0-39.1); MEAN CORPUSCULAR HEMOGLOBIN 29.9 pg (28-32); MEAN CORPUSCULAR HGB CONC 31.1 g/dL (31-35); MEAN CORPUSCULAR VOLUME 95.9 fL (81-99); MONOCYTES # (AUTO) 1.4 (0.2-0.8); MONOCYTES % 6.3 % (4.4-11.3); NEUTROPHILS # (AUTO) 14.5 (2.1-6.9); NEUTROPHILS % 66.8 % (38.7-80.0); PLATELET COUNT 399 x10e3/uL (140-360); RED BLOOD COUNT 3.18 x10e6/uL (4.3-5.7); RED CELL DISTRIBUTION WIDTH 16.7 % (11.7-14.4)
[2021-05-23 06:35] LABS: ALBUMIN 1.6 g/dL (3.5-5.0); ALBUMIN/GLOBULIN RATIO 0.4 (0.8-2.0); ANION GAP 10.6 mmol/L (8-16); CALCIUM 8.1 mg/dL (8.4-10.2); CREATININE, SERUM 0.47 mg/dL (0.72-1.25); POTASSIUM 4.6 mmol/L (3.5-5.1)
[2021-05-23] MEDS: MEROPENEM 1 GM in SODIUM CHLORIDE 0.9% 100 ML IV SCH ×3 (06:44→21:30)
[2021-05-23 08:17] LABS: ANISOCYTOSIS SLIGHT; BAND NEUTROPHILS % (MANUAL) 11 %; EOSINOPHILS % (MANUAL) 13 % (0-7); LYMPHOCYTES % (MANUAL) 5 % (19-48); METAMYELOCYTES % (MANUAL) 1 % (0-0); MONOCYTES % (MANUAL) 5 % (3.4-9.0); NEUTROPHILS % (MANUAL) 65 % (40-74); PLATELET ESTIMATE ADEQUATE; PLATELET MORPHOLOGY COMMENT NORMAL; RBC MORPHOLOGY COMMENT NORMAL
[2021-05-23] MEDS: NOREPINEPHRINE 8 MG/D5W 250 ML 250 ML IV SCH (08:45)
[2021-05-23] MEDS: SENNA-S TABLET PO SCH (11:10)
[2021-05-23] MEDS: AMIODARONE HCL 200 MG TAB PO SCH ×2 (11:10→20:33)
[2021-05-23] MEDS: FENTANYL 2000MCG/NS 250 250 ML IV SCH (11:45)
[2021-05-23] MEDS: ENOXAPARIN SOD INJ 40 MG/0.4 ML SYR SC SCH (17:26)
[2021-05-24] VITALS (10 sets, daily range): BP systolic 85–126; BP diastolic 52–82
[2021-05-24] MEDS: PROPOFOL IV EMULSION 10MG/ML 100 ML IV SCH ×3 (04:04→04:06)
[2021-05-24] MEDS: MEROPENEM 1 GM in SODIUM CHLORIDE 0.9% 100 ML IV SCH (05:23)
[2021-05-24] MEDS: FENTANYL 2000MCG/NS 250 250 ML IV SCH (07:16)
[2021-05-24] MEDS: NOREPINEPHRINE 8 MG/D5W 250 ML 250 ML IV SCH (08:02)
[2021-05-24] MEDS: AMIODARONE HCL 200 MG TAB PO SCH (08:11)
[2021-05-24] MEDS: SENNA-S TABLET PO SCH (08:11)
== END 2021-05-24 10:54 | disposition hospice, inpatient (51) | DRG 163 ==
LOC: ER 09:50 → ERHOLD 12:10 → MED/SURG2 14:21 → ICU 04-24 13:09
PROVIDERS: ADMIT Internal Medicine; ATTEND Internal Medicine
PROC: 3E03329 Introduction of Other Anti-infective into Peripheral Vein, Percutaneous Approach (ICD-10-PCS; 2021-04-22)
PROC: 0W993ZZ Drainage of Right Pleural Cavity, Percutaneous Approach (ICD-10-PCS; 2021-04-23)
PROC: 3E0333Z Introduction of Anti-inflammatory into Peripheral Vein, Percutaneous Approach (ICD-10-PCS; 2021-04-23)
PROC: 0W9D30Z Drainage of Pericardial Cavity with Drainage Device, Percutaneous Approach (ICD-10-PCS; principal; 2021-04-24)
PROC: 5A0935A Assistance with Respiratory Ventilation, Less than 24 Consecutive Hours, High Flow/Velocity Cannula (ICD-10-PCS; 2021-04-24)
PROC: 02HV33Z Insertion of Infusion Device into Superior Vena Cava, Percutaneous Approach (ICD-10-PCS; 2021-04-25)
PROC: 5A1955Z Respiratory Ventilation, Greater than 96 Consecutive Hours (ICD-10-PCS; 2021-04-25)
PROC: 0BH17EZ Insertion of Endotracheal Airway into Trachea, Via Natural or Artificial Opening (ICD-10-PCS; 2021-04-25)
PROC: 3E043XZ Introduction of Vasopressor into Central Vein, Percutaneous Approach (ICD-10-PCS; 2021-04-25)
PROC: 2W54XYZ Removal of Other Device on Chest Wall (ICD-10-PCS; 2021-05-03)
PROC: 0BNK0ZZ Release Right Lung, Open Approach (ICD-10-PCS; 2021-05-07)
PROC: 0BBN0ZX Excision of Right Pleura, Open Approach, Diagnostic (ICD-10-PCS; 2021-05-07)
PROC: 0W9900Z Drainage of Right Pleural Cavity with Drainage Device, Open Approach (ICD-10-PCS; 2021-05-07)
PROC: 0WJ63ZZ Inspection of Neck, Percutaneous Approach (ICD-10-PCS; 2021-05-07)
DX: J18.9 Pneumonia, unspecified organism (principal); A41.9 Sepsis, unspecified organism; I50.33 Acute on chronic diastolic (congestive) heart failure; J96.01 Acute respiratory failure with hypoxia; R65.21 Severe sepsis with septic shock; R65.20 Severe sepsis without septic shock; M62.82 Rhabdomyolysis; I31.4 Cardiac tamponade; E22.2 Syndrome of inappropriate secretion of antidiuretic hormone; I30.8 Other forms of acute pericarditis; C79.71 Secondary malignant neoplasm of right adrenal gland; C34.91 Malignant neoplasm of unspecified part of right bronchus or lung; J91.0 Malignant pleural effusion; C78.2 Secondary malignant neoplasm of pleura; C79.89 Secondary malignant neoplasm of other specified sites; C79.72 Secondary malignant neoplasm of left adrenal gland; Z66 Do not resuscitate; E83.51 Hypocalcemia; F17.210 Nicotine dependence, cigarettes, uncomplicated; E87.8 Other disorders of electrolyte and fluid balance, not elsewhere classified; J39.8 Other specified diseases of upper respiratory tract; Z91.81 History of falling; E78.5 Hyperlipidemia, unspecified; Z88.1 Allergy status to other antibiotic agents; Z88.0 Allergy status to penicillin; Z20.822 Contact with and (suspected) exposure to COVID-19; E86.0 Dehydration; D72.829 Elevated white blood cell count, unspecified; G47.00 Insomnia, unspecified; E03.9 Hypothyroidism, unspecified; D50.0 Iron deficiency anemia secondary to blood loss (chronic); I48.91 Unspecified atrial fibrillation; I48.0 Paroxysmal atrial fibrillation; D75.839 Thrombocytosis, unspecified
CPT/HCPCS: 32555; 36415; 36600; 70450; 71045; 71260; 74018; 76604; 80048; 80053; 80202; 81001; 82040; 82150; 82550; 82553; 82728; 82805; 82945; 82948; 83605; 83615; 83735; 83880; 83930; 83935; 84100; 84157; 84300; 84436; 84443; 84479; 84484; 85025; 85610; 85730; 86039; 86141; 86200; 86431; 86701; 86702; 86850; 86900; 86920; 87040; 87070; 87071; 87075; 87086; 87102; 87116; 87205; 87206; 88112; 88305; 88342; 89051; 93005; 93306; 93307; 94002; 94003; 94640; 94799; 96361; 99251; 99284; J0171; J0330; J1100; J1650; J1956; J2001; J2060; J2185; J2250; J3010; J3370; J7030; J7040; J7050; Q9967; U0002